=== PATIENT | male | born 1995 | race Two or more races ===

== ENCOUNTER 2018-11-30 19:36 | Inpatient (IN) | payer MEDICAID ==
--- NOTE | 2018-11-30 20:21 | EDPHY ---
H & P Stated Complaint: si, depression - Personal History Current Tetanus Diphtheria and Acellular Pertussis (TDAP): Unsure - Medical/Surgical History Hx Asthma: Yes Other PMH: concussion - Social History Smoking Status: Never smoked Time Seen by Provider: 11/30/18 20:07 HPI/ROS: CHIEF COMPLAINT: Depression, SI HISTORY OF PRESENT ILLNESS: 23-year-old transgender female arrives via private vehicle complaining of increasing depression, suicidal ideation. 2 nights ago she closed garage door ran her car engine for 30 min in the carbon monoxide attempted suicide open the door when she looked in the mirror and saw her face. She has continued thoughts of suicidality with current plan to either drive into a [place] or drive off a [place]. She notes that her symptoms started by enlarged after a head injury which occurred at work in August 2018. REVIEW OF SYSTEMS: 10 systems reviewed and negative with the exception of the elements mentioned in the history of present illness PAST MEDICAL & SURGICAL HISTORY: transgender female SOCIAL HISTORY:Denies acute alcohol or drug use PHYSICAL EXAM (Prior to examination, patient consented to physical exam, hands were washed and my usual and customary physical exam procedures followed) 1) GENERAL: Well-developed, well-nourished, alert and oriented. Appears sad, depressed affect. 2) HEAD: Normocephalic, atraumatic 3) HEENT: Pupils equal, round, reactive to light bilaterally. Sclera anicteric. 4) NECK: Full range of motion, no meningeal signs. 5) LUNGS: Clear auscultation bilaterally, no wheezes, no rhonchi, no retractions. 6) HEART: Regular rate and rhythm, no murmur, no heave, no gallop. 7) ABDOMEN: No guarding, no rebound, no focal tenderness, negative McBurney's, negative Fernandez's, negative Rovsing's, negative peritoneal sign, 8) MUSCULOSKELETAL: Left popliteal fossa abrasion. Multiple subacute pen ye and and scars left forearm. Otherwise, Moving all extremities, no focal areas of tenderness, no obvious trauma. No peripheral edema or discoloration. 9) BACK: No CVA tenderness, no midline vertebral tenderness, no fluctuance, no step-off, no obvious trauma, no visual or palpable abnormality. 10) SKIN: No rash, no petechiae. 11) Psychiatric: Patient is oriented X 3, there is no agitation. DIFFERENTIAL DIAGNOSIS: In no particular order including but not limited to depression, suicidal ideation, homicidal ideation (Jonny Baer) Constitutional: Initial Vital Signs Temperature (C) 36.5 C 11/30/18 19:45 Heart Rate 80 11/30/18 19:45 Respiratory Rate 18 11/30/18 19:45 Blood Pressure 128/75 H 11/30/18 19:45 O2 Sat (%) 96 11/30/18 19:45 O2 Delivery Mode Room Air Allergies/Adverse Reactions: hepatitis B immune globulin Allergy (Verified 11/30/18 19:44) strawberry Allergy (Verified 11/30/18 19:44) Home Medications: Medication Instructions Recorded Estradiol [Estradiol 1 MG (*)] 2 mg PO DAILY 11/30/18 Spironolactone 100 mg PO BID 11/30/18 Medical Decision Making ED Course/Re-evaluation: 820 p.m.: Patient was evaluated by myself. In consultation with Dr. Jessica Hua, secondary supervising physician, patient was placed on M1 hold as I think she presents an imminent danger to herself. Midnight: Care turned over to Dr. Antoine. Mental health anesthesiology crna looking for placement (Jonny Baer) Other Provider: [facility] care assumed from SANDRITA Baer pending mental health evaluation. 01:40 patient has been accepted to [address] Murdock. I have completed the EMTALA. (Rodolfo Antoine) - Data Points Laboratory Results: Laboratory Results 11/30/18 20:20 11/30/18 20:20 11/30/18 11/30/18 11/30/18 21:40 20:20 20:20 WBC 8.59 10^3/uL 10^3/uL (3.80-9.50) RBC 4.98 10^6/uL 10^6/uL (4.40-6.38) Hgb 15.7 g/dL g/dL (13.7-17.5) Hct 45.6 % % (40.0-51.0) MCV 91.6 fL fL (81.5-99.8) MCH 31.5 pg pg (27.9-34.1) MCHC 34.4 g/dL g/dL (32.4-36.7) RDW 11.6 % % (11.5-15.2) Plt Count 267 10^3/uL 10^3/uL (150-400) MPV 10.2 fL fL (8.7-11.7) Neut % (Auto) 70.1 % % (39.3-74.2) Lymph % (Auto) 21.0 % % (15.0-45.0) [place] % (Auto) 6.3 % % (4.5-13.0) Eos % (Auto) 1.6 % % (0.6-7.6) Baso % (Auto) 0.7 % % (0.3-1.7) Nucleat RBC Rel Count 0.0 % % (0.0-0.2) Absolute Neuts (auto) 6.02 10^3/uL 10^3/uL (1.70-6.50) Absolute Lymphs (auto) 1.80 10^3/uL 10^3/uL (1.00-3.00) Absolute Monos (auto) 0.54 10^3/uL 10^3/uL (0.30-0.80) Absolute Eos (auto) 0.14 10^3/uL 10^3/uL (0.03-0.40) Absolute Basos (auto) 0.06 10^3/uL 10^3/uL (0.02-0.10) Absolute Nucleated RBC 0.00 10^3/uL 10^3/uL (0-0.01) Immature Gran % 0.3 % % (0.0-1.1) Immature Gran # 0.03 10^3/uL 10^3/uL (0.00-0.10) Sodium 138 mEq/L mEq/L (135-145) Potassium 4.8 mEq/L mEq/L (3.5-5.2) Chloride 106 mEq/L mEq/L (97-110) Carbon Dioxide 23 mEq/l mEq/l (22-31) Anion Gap 9 mEq/L mEq/L (6-14) BUN 18 mg/dL mg/dL (7-23) Creatinine 0.8 mg/dL mg/dL (0.7-1.3) Estimated GFR > 60 Glucose 104 mg/dL H mg/dL (70-100) Calcium 9.4 mg/dL mg/dL (8.5-10.4) Salicylates < 1.0 mg/dL L mg/dL (2.0-20.0) Urine Opiates Screen NEGATIVE (NEGATIVE) Acetaminophen < 10 mcg/mL L mcg/mL (10-30) Urine Barbiturates NEGATIVE (NEGATIVE) Ur Phencyclidine Scrn NEGATIVE (NEGATIVE) Ur Amphetamine Screen NEGATIVE (NEGATIVE) U Benzodiazepines Scrn NEGATIVE (NEGATIVE) Urine Cocaine Screen NEGATIVE (NEGATIVE) U Marijuana (THC) Screen NEGATIVE (NEGATIVE) Ethyl Alcohol < 10 mg/dL mg/dL (0-10) Medications Given: Discontinued Medications Estradiol (Estradiol) 2 mg PO EDNOW ONE Stop: 11/30/18 21:16 Last Admin: 11/30/18 21:17 Dose: 2 mg Spironolactone (Aldactone) 100 mg PO EDNOW ONE Stop: 11/30/18 21:16 Last Admin: 11/30/18 21:17 Dose: 100 mg Departure - Departure Disposition: [facility] Inpatient Acute Clinical Impression: Suicidal ideation Condition: Fair Referrals: NONE *PRIMARY CARE P,. [Unknown] - As per Instructions
[2018-11-30 20:36] LABS: PLATELET COUNT 267 10^3/uL (150-400)
[2018-11-30] MEDS ORDERED: SPIRONOLACTONE 100 MG TAB PO ONE (21:15)
[2018-11-30] MEDS ORDERED: ESTRADIOL 1 MG TAB PO ONE (21:15)
[2018-12-01] MEDS ORDERED: MELATONIN 3 MG TAB PO PRN (00:10)
[2018-12-01] MEDS ORDERED: LORazepam 0.5 MG TAB PO PRN (00:10)
[2018-12-01] MEDS ORDERED: MAGNESIUM HYDROXIDE 30 ML UDCUP PO PRN (00:10)
[2018-12-01] MEDS ORDERED: MAG HYDROX/AL HYDROX/SIMETH 30 ML UDCUP PO PRN (00:10)
[2018-12-01] MEDS ORDERED: OLANZapine DISINTEGR 5 MG TAB PO PRN (00:10)
[2018-12-01] MEDS ORDERED: ACETAMINOPHEN 325 MG TAB PO PRN (00:10)
[2018-12-01] MEDS ORDERED: NICOTINE POLACRILEX 2 MG GUM B PRN (00:10)
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
--- NOTE | 2018-12-01 00:31 | ASMTTCLDSP ---
TLC Discharge Disposition Disposition: Answers: Admit Discharge Concerns/Recommendations: Notes: In consultation with [facility] ED physician, DR Solo and on-call psychiatrist,Dr Israel, both concurred that Pt does appear to meet 27-65 criteria requiring psychiatric hospitalization as Pt does appear to be an imminent risk of harm to self due to a mental illness condition. Pt was read the Patient Rights and Responsibilities Statement on 11/30/2018 at 23:30, original placed in chart and copy given to pt. Was patient given the Answers: Yes Inpatient Behavioral Health Prohibited Belongings List while in the ED? For inpatient Dr Murdock admission, the following psychiatrist agreed to accept patient for admission to Behavioral Health ([facility]): Type of Hold: Answers: M1/72-hour Hold Hold initiated by: Answers: ED Physician Date Signed: 12/01/2018 12:31 AM Electronically Signed By:Teresa Ocasio
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
[2018-12-01] MEDS: SERTRALINE HCL 50 MG TAB PO SCH (11:01)
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
[2018-12-01] MEDS ORDERED: ESTRADIOL 1 MG TAB PO SCH ×2 (12:52→21:00)
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
[2018-12-01 15:19] LABS: HIV TYPE 1 AND 2 NEGATIVE (NEGATIVE)
--- NOTE | 2018-12-01 16:18 | PDMN ---
Medical Necessity Medical necessity: Pt meets IP criteria per & MICHELLE [id number]; est los >2 mn for eval/tx of major depressive disorder; pt on M1 hold due to being a danger to self; admit for further monitoring, safety, crisis stabilization & med management; per order & H&P 12/01/18
[2018-12-01] MEDS: SPIRONOLACTONE 100 MG TAB PO SCH (20:09)
[2018-12-01] MEDS: ESTRADIOL 1 MG TAB PO SCH (20:11)
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
--- NOTE | 2018-12-02 08:46 | SOAPPROG ---
SOAP Progress Note Assessment/Plan: Assessment: Major Depressive Disorder, Severe, with anxious distress. Improvement noted. ( see subjective/objective note). Patient could benefit from continued inpatient hospitalization for crisis stabilization, safety, and medication evaluation. Consider discharge tomorrow. Plan: 1. Psychotropic medications: After reviewing options, risks, and benefits patient agrees to continue current medications. No medication changes at this time as more time is needed to determine ongoing tolerability and efficacy. Plan is to continue to observe patient for response and side effects from medications, and ongoing monitoring and evaluation. 2. Review with patient informed consent and recommendations for psychotropic medication treatment listed below 3. Labs: no additional at this time 4. Therapy: continue milieu and group therapy 5. Further investigation including gathering information from patients relatives and review of past case records to inform treatment plan. 6. Safety/Wellness plan and follow-up outpatient appointments to be established prior to discharge. Next steps are for patient to meet with healthcare receptionist to plan a safe discharge plan and establish outpatient services for ongoing treatment. 7. Confer with inpatient treatment team regarding treatment plan. 8. Psychosocial stressors addressed through rn field case manager. 9. Legal status: M1 10. Consider discharge on Thursday if patient is in stable condition, safe, and has a safe discharge plan. PSYCHOTROPIC MEDICATION TREATMENT INFORMED CONSENT and RECOMMENDATIONS: Review nature of condition, diagnosis, and prognosis. Review nature and purpose of psychotropic medication treatment. Review type of psychotropic medications being ordered. Review risk and benefits of psychotropic medication treatment. Review probable length of time patient will need to take medications. Review risk and benefits of not undergoing psychotropic medication treatment. Review alternative treatments to psychotropic medications. Review psychotropic medications contraindications, drug-drug interactions, side effects, and importance of reporting any side effects to a psychiatric provider or nurse during inpatient hospitalization, and upon discharge to patients psychiatric outpatient provider, primary care provider, or other health child care provider. Review importance of asking a nurse, psychiatric provider, or primary care provider any questions or problems concerning the psychotropic medications. Verify patient understands the information that has been provided, and understands, accepts, and agrees to psychotropic medications. Review patients safety plan and importance of patient to report to staff while hospitalized if patient is ever a danger to self/others, or unable to care for self, and upon discharge, the importance for patient to contact [facility] or [facility], or go to the nearest emergency room, if patient is ever a danger to self/others, or unable to care for self. Recommend that upon discharge patient establish medication management treatment with a psychiatric provider, establishes routine therapy appointments, and follow-up with primary care provider. Verify patient understands and agrees to these recommendations. 12/02/18 08:45 Subjective: Following up with patient for evaluation of mood and safety. Patient reports, "Feeling better." Patient denies SI, reports feeling safe. Patient expresses the following psychiatric symptoms none. Patient reports taking medications as prescribed. Patient does not report undesirable side effects from the medications, and agrees to continue current medications. Patient describes getting 8 hours of sleep. Objective: Vital Signs Temp Pulse Resp BP Pulse Ox 36.4 C 60 14 124/77 H 95 12/01/18 02:27 12/01/18 02:27 12/01/18 02:27 12/01/18 02:27 12/01/18 02:27 NURSING REPORT: Consulted with nursing for update on patients progress in treatment. Nurses report patient is engaged in treatment, is attending groups, slept 8 hours, expresses the following psychiatric symptoms: mild anxiety, exhibits the following psychiatric symptoms: none, is eating all meals, is agreeable to medications and taking as prescribed with no report of side effects , with no s/s of EPS/akathisia, and denies SI/HI, denies A/V hallucinations, and denies delusions. MSE: The patient presents casually dressed and with good hygiene, and looks stated age. Patient is sitting, posture is upright, and position is relaxed. Patient appears awake, alert, and responds appropriately and reasonably during interview. Patient is engaged, relates well to interviewer, and emotional facial expression is appropriate to situation and changes appropriately with topic. Patient is cooperative, makes comfortable eye contact, and movements are voluntary, deliberate, coordinated, and smooth and even with no inappropriate movements. Patient makes laryngeal sounds effortlessly and shares conversation appropriately; pace of conversation is appropriate, and stream of talking is fluent; articulation is clear and understandable; word choice is effortless and appropriate for education level; completes sentences, occasionally pausing to think; rate and volume are appropriate for interview and setting. Patient reports mood as euthymic. Patients affect is stable with full variable range, congruent with mood, and appropriate to speech and circumstances. Patient has linear and logical thinking, with no loose associations, tangential thought, thought blocking, concrete thinking, or any other signs of formal thought disorder. Patient denies suicidal and homicidal ideation, and denies hallucinations and delusions. Patient appears to be a reliable historian with sound judgement and good insight into current condition. Patient has no apparent dysfunction in recent or remote memory noted , and no evidence of gross cognitive dysfunction noted at any point during the interview. - Time Spent With Patient Time Spent With Patient: 15 minutes, met with patient individually. - Pending Discharge Pending Discharge Within 24 Hours: Yes Pending Discharge Within 48 Hours: No Pending Discharge Date: 12/03/18 Pending Discharge Time: 11:00 ICD10 Worksheet Patient Problems: Problems Problem Status Onset Suicidal ideation Acute
[2018-12-02] MEDS: SERTRALINE HCL 50 MG TAB PO SCH (08:52)
[2018-12-02] MEDS: SPIRONOLACTONE 100 MG TAB PO SCH ×2 (08:52→18:10)
[2018-12-02 10:39] LABS: GC AMPLIFICATION GENPROBE NEGATIVE (NEGATIVE)
[2018-12-02] MEDS: LORazepam 1 MG TAB PO PRN ×2 (11:11→18:11)
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
[2018-12-02] MEDS: ESTRADIOL 1 MG TAB PO SCH (18:10)
--- NOTE | 2018-12-03 08:05 | ASMTCMCOM ---
CM Note CM Note Notes: CC checked in with ct. who reported that she is very tired and that she did not sleep well last night. When asked about her mood ct. said "I don't have a mood". Ct. denied current SI but reported "I'm still concerned that I will do something stupid". Ct. reported that the anxiety medication she has been prescribed was really helpful. She said that if discharging today she would like it prescribed for her as "my anxiety is a trigger for my depression and my depression is a trigger for my SI". Date Signed: 12/03/2018 08:05 AM Electronically Signed By:Raina Alonso
[2018-12-03] MEDS: LORazepam 0.5 MG TAB PO PRN (08:57)
[2018-12-03] MEDS: SPIRONOLACTONE 100 MG TAB PO SCH ×2 (08:58→23:16)
[2018-12-03] MEDS: SERTRALINE HCL 50 MG TAB PO SCH (08:58)
--- NOTE | 2018-12-03 10:43 | SOAPPROG ---
SOAP Progress Note Assessment/Plan: Assessment: Major Depressive Disorder, Severe, with anxious distress. PTSD. Improvement noted. (see subjective/objective note). Patient could benefit from continued inpatient hospitalization for crisis stabilization, safety, and medication evaluation. Requires close monitoring. Consider discharge next week. Plan: 1. Psychotropic medications: After reviewing options, risks, and benefits patient agrees to continue current medications. No medication changes at this time as more time is needed to determine ongoing tolerability and efficacy. Plan is to continue to observe patient for response and side effects from medications, and ongoing monitoring and evaluation. 2. Review with patient informed consent and recommendations for psychotropic medication treatment listed below 3. Labs: no additional at this time 4. Therapy: continue milieu and group therapy 5. Further investigation including gathering information from patients relatives and review of past case records to inform treatment plan. 6. Safety/Wellness plan and follow-up outpatient appointments to be established prior to discharge. Next steps are for patient to meet with respiratory care program director to plan a safe discharge plan and establish outpatient services for ongoing treatment. 7. Confer with inpatient treatment team regarding treatment plan. 8. Psychosocial stressors addressed through caseworker protective services. 9. Legal status: M1; agrees to voluntary 10. Consider discharge next week if patient is in stable condition, safe, and has a safe discharge plan. PSYCHOTROPIC MEDICATION TREATMENT INFORMED CONSENT and RECOMMENDATIONS: Review nature of condition, diagnosis, and prognosis. Review nature and purpose of psychotropic medication treatment. Review type of psychotropic medications being ordered. Review risk and benefits of psychotropic medication treatment. Review probable length of time patient will need to take medications. Review risk and benefits of not undergoing psychotropic medication treatment. Review alternative treatments to psychotropic medications. Review psychotropic medications contraindications, drug-drug interactions, side effects, and importance of reporting any side effects to a psychiatric provider or nurse during inpatient hospitalization, and upon discharge to patients psychiatric outpatient provider, primary care provider, or other health spiritual care coordinator. Review importance of asking a nurse, psychiatric provider, or primary care provider any questions or problems concerning the psychotropic medications. Verify patient understands the information that has been provided, and understands, accepts, and agrees to psychotropic medications. Review patients safety plan and importance of patient to report to staff while hospitalized if patient is ever a danger to self/others, or unable to care for self, and upon discharge, the importance for patient to contact [facility] or [facility], or go to the nearest emergency room, if patient is ever a danger to self/others, or unable to care for self. Recommend that upon discharge patient establish medication management treatment with a psychiatric provider, establishes routine therapy appointments, and follow-up with primary care provider. Verify patient understands and agrees to these recommendations. 12/03/18 10:44 Subjective: Following up with patient for evaluation of mood and safety. Patient reports, "Feeling better, not as anxious. Medications are working okay" Patient expresses the following psychiatric symptoms none. Patient reports taking medications as prescribed. Patient does not report undesirable side effects from the medications, and agrees to continue current medications. Patient describes getting 8 hours of sleep. Patient reports she understands instructions regarding avoiding abrupt discontinuation of hormone therapy as advised by her women's health provider. Objective: Vital Signs Temp Pulse Resp BP Pulse Ox 36.3 C 56 L 16 133/83 H 96 12/03/18 08:14 12/03/18 08:14 12/03/18 08:14 12/03/18 08:14 12/03/18 08:14 NURSING REPORT: Consulted with nursing for update on patients progress in treatment. Nurses report patient is engaged in treatment, is attending groups, slept 8 hours, expresses the following psychiatric symptoms: mild anxiety, exhibits the following psychiatric symptoms: self-harm behaviors (see nursing notes); severe anxiety; is eating all meals, is agreeable to medications and taking as prescribed with no report of side effects, with no s/s of EPS/ akathisia, and denies SI/HI, denies A/V hallucinations, and denies delusions. RN NOTES FROM 12/02/18: "Patient was observed by this RN loosening screws in the pull panel on the east emergency egress door. Patient came to RN station to report she had "accidentally" done this. Dom and this RN walked to the area of the unit where screws were loose. RN stated to patient: "you have tools, please use them." Patient was alerted that she will be in seclusion room if she can't stay safe. Try distraction, try TV, try reading, try games. "none of that will work." " RN NOTES FROM 12/02/18: "At 1100, patient was found sitting on floor in room scratching forearms with point of purple lotion bottle, superficial. Patient appeared anxious, eyes darting, shaking legs. Patient stated "I am tired of this, I keep thinking about killing myself. Hanging." Patient was cooperative and came out of room so that staff could watch patient. Reverse room initiated (Restriction of Rights). Patient accepted 1 mg of ativan. Patient and this appeals writer talked for 45 minutes until patient was calm and laughing. Patient discussed decision to transition to female, risky sexual behaviors, recent trauma events. Patient animated and insightful. Suicide precautions re-initiated and shaving order discontinued." TREATMENT TEAM UPDATE/CARE COORDINATION: Patient not safe to discharge; continue safety precautions. MSE: The patient is a well-nourished transgender female looking stated chronological age. Attire is appropriate dress is hospital garb. Grooming status is appropriate. Ambulation is independent. Gait is normal and coordinated. Posture is normal. Eye contact is appropriate. Motor activity is appropriate with purposeful, organized, coordinated movements; with no involuntary movements. Attitude is cooperative. Patient appears attentive and relates well to this interviewer. Language production is spontaneous. R/R/V normal. Articulation is clear. Patient reports mood as okay with constricted, flat and incongruent affect. Patients thought process is linear and logical. Patient does not report suicidal/homicidal thoughts, ideas, or plans. Patient reports she currently feels safe, and reports no self-injurious ideation. Patient denies auditory, visual hallucinations. Patient denies delusions. Patient does not appear to be attending to internal stimuli. Patients attention and concentration are fair. Patient is oriented to person, place, time. Patients insight is poor. Patients judgment is poor. - Time Spent With Patient Time Spent With Patient: 15 minutes, met with patient individually. - Pending Discharge Pending Discharge Within 24 Hours: No Pending Discharge Within 48 Hours: No ICD10 Worksheet Patient Problems: Problems Problem Status Onset Major depressive disorder, recurrent episode, severe with anxious distress Chronic Post traumatic stress disorder Chronic
[2018-12-03] MEDS: ESTRADIOL 1 MG TAB PO SCH (23:15)
[2018-12-04] MEDS: SERTRALINE HCL 50 MG TAB PO SCH (08:41)
[2018-12-04] MEDS: SPIRONOLACTONE 100 MG TAB PO SCH ×2 (08:41→20:54)
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
--- NOTE | 2018-12-04 13:54 | ASMTCMCOM ---
CM Note CM Note Notes: CC was able to speak to client briefly while she was on the phone. This CC reminded client that he could return after she was "done using the phone, etc." She noted, "oh no I am on the phone with my sister.... I am not suicidal or have any self-harm thoughts." Client did appear pressured while on the phone and speaking to this policy writer. Client noted, "I am feeling great...no depression or anything." Affect is elevated loud and superficial with limited insight.* Date Signed: 12/04/2018 01:53 PM Electronically Signed By:Rayray Andrews
[2018-12-04] MEDS: hydrOXYzine HCL 25 MG TAB PO PRN (14:32)
[2018-12-04] MEDS: ESTRADIOL 1 MG TAB PO SCH (20:54)
[2018-12-05] MEDS: SERTRALINE HCL 50 MG TAB PO SCH (08:18)
[2018-12-05] MEDS: SPIRONOLACTONE 100 MG TAB PO SCH ×2 (08:18→20:33)
--- NOTE | 2018-12-05 11:54 | ASMTBHDC ---
Notes Note: Notes: CC was able to confirm client's discharge apts, etc. Follow up with: Client needs to out-reach DBT (groups, services) at [facility] before discharge. Renan Hogan, MS [employer], [facility] [address] [place] [address] Next Appt: ThursdayDecember 09 (12/09/18) at 2:00pm with Renan. [facility] [address], [place] [address] Appt. TBD Date Signed: 12/05/2018 11:53 AM Electronically Signed By:Rayray Andrews
--- NOTE | 2018-12-05 13:12 | ASMTBHDC ---
Notes Note: Notes: Per Provider, she would like client to complete an assessment for there DBT (IOP) through [facility], prior to D/C tomorrow. CC provider her with all necessary contact info, she had no problem contacting them for an intake before leaving. Additinally, client suggests she has a "ride that can come and pick her up," etc. Client denies any S/I-H/I, depression, anxiety and/or AVH. Date Signed: 12/05/2018 01:11 PM Electronically Signed By:Rayray Andrews
[2018-12-05] MEDS: ESTRADIOL 1 MG TAB PO SCH (20:33)
--- NOTE | 2018-12-05 22:02 | SOAPPROG ---
[facility] Progress Note Assessment/Plan: Assessment: 23yo transgender with MDD with anxious distress, and PTSD admitted with SI and plan, started Zoloft and on behav plan. Has been managing safely on unit since 12/02 with improvement in symptoms and use of coping strategies. 12/05/18 14:31 per staff, slept 8hr. slept in own room as decrease restriction to behav plan. no safety issues. interviewed pt with ARMAMENT REPAIRER student States "being patient is huston to everything". 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 Completed safety plan. Has been more invested in treatment, attending groups, no self harming thoughts or behaviors. Talked of plan to start EMDR with her oupt therapist who recently got EMDR certification. Discussed this and recommended to delay this type of therapy for now. Denied any med s/e, feels vistaril helped but has not needed it today. mse: cooperative, good e/c, shaved facial hair, long black hair, neatly kempt, casually dressed, nml speech rate/vol, no abn invol mvmts. calm, euthymic, no anxiety noted. mood "a lot better", affect full and appropriate to conversation. no psychosis, denied any SI or thoughts to harm others. i/j seem intact. Plan: -Continue Zoloft 50 mg PO daily -Hydroxyzine 25-50 mg PO QID prn anxiety. Used 25mg yesterday with benefit, did not feel it necessary today for any anxiety. -Pt reports never in DBT therapy, would benefit and agreeable for DBT group referrals in community. Also IOP could be helpful if available with her insurance. -Plans to continue with outpatient therapist who specializes in transgender issues. -Recommended NOT start EMDR with her therapist at this time, but preferably start with DBT. Discussed potential risks, brenda w/recent transition, stabilization, newly set goals, new medication etc. Could trigger recurr/incr PTSD. -Pt agrees to explore [facility] to establish with outpt psychiatrist, also DBT groups avail. States mother for some reason didn't like [facility] but pt agrees to check it out and decide for herself. -Slept in room w/o safety, or behavioral, issues last pm. OK to d/c reverse room restriction. Off SP-1. Shaved w/o incident. Anticipate d/c in AM as planned. Objective: Vital Signs Temp Pulse Resp BP Pulse Ox 36.3 C 50 L 15 99/55 L 97 12/05/18 06:00 12/05/18 06:00 12/05/18 06:00 12/05/18 06:00 12/05/18 06:00 - Time Spent With Patient Time Spent With Patient: 35min - Pending Discharge Pending Discharge Within 24 Hours: Yes Pending Discharge Date: 12/05/18 Pending Discharge Time: 11:00 ICD10 Worksheet Patient Problems: Problems Problem Status Onset Major depressive disorder, recurrent episode, severe with anxious distress Chronic Post traumatic stress disorder Chronic
[2018-12-05] MEDS: hydrOXYzine HCL 25 MG TAB PO PRN (22:46)
[2018-12-05] MEDS: LORazepam 0.5 MG TAB PO PRN (23:17)
[2018-12-06 06:30] VITALS: BP 108/57
[2018-12-06] MEDS: SERTRALINE HCL 50 MG TAB PO SCH (09:30)
[2018-12-06] MEDS: SPIRONOLACTONE 100 MG TAB PO SCH (09:31)
--- NOTE | 2018-12-06 11:30 | ASMTBHDC ---
Notes Note: Notes: Pt. reports she is "doing good, can't wait to get out and listen to music". Pt. stated she "had a lot of trouble falling asleep" adding this is normal for her and she was having "racing thoughts". Pt. reports getting enough to eat and attending about 70-80% of the groups. Pt. reports no issues while on the unit. Pt. denied SI, HI, AVH and paranoia. Pt. reports her mother coming between 12pm and 12:30pm for a family meeting and to then take the pt home. Pt. stated this will be her first time discharging from a hospital as an adult. Pt. stated she is able to enroll herself into a DBT IOP group. Pt. stated she would like to shave and put on her make up before her family meeting. Pt. presents as alert, excited to d/c, good eye contact, polite, groomed, and cooperative. Staff report pt. sleeping 7.5 hour and being medication compliant. Pt. follow up appointments as follows: Client needs to out-reach DBT (groups, services) at [facility] before discharge. Renan Hogan, MS VBA PROGRAMMER, [facility] [address] [place] [address] Next Appt: ThursdayDecember 09 (12/09/18) at 2:00pm with Renan. [facility] [address], [place] [address] Next Appt.: Monday December 17, 2018 (12/17/18) @ 9:20am Date Signed: 12/06/2018 11:29 AM Electronically Signed By:Christine Villeda
--- NOTE | 2018-12-06 12:34 | BDS ---
[f rep st] BEHAVIORAL HEALTH DISCHARGE SUMMARY REASON FOR ADMISSION: From the ED note dated 11/30/2018, the patient arrived by private vehicle complaining of increasing depression and suicidal ideation. The patient was admitted involuntarily and on an M1 hold due to being a danger to himself. The patient was admitted for safety, crisis stabilization, and medication management. ADMITTING DIAGNOSES: 1. Major depressive disorder, recurrent episode, severe, with anxious distress. 2. Posttraumatic stress disorder. ADMISSION PHYSICAL EXAM: Patient was seen on 12/01/2018, for history and physical consultation for medical clearance for inpatient psychiatric hospitalization and treatment. The patient was medically cleared for inpatient psychiatric hospitalization and treatment. For further details, please refer to consultation document dated 12/01/2018. ADMISSION LABS: 1. CBC within normal limits. 2. BMP within normal limits except glucose is elevated at 104. 3. Hemoglobin A1c within normal limits at 5.2. 4. Liver function within normal limits. 5. Lipid panel within normal limits except triglyceride was elevated at 284, VLDL cholesterol was elevated at 57. 6. Toxicology screen negative for all substances screened and negative for ethyl alcohol. 7. Syphilis nonreactive. 8. C. Trachomatis RNA negative. 9. HIV 1 and 2 antibody negative. 10. N. gonorrhoeae RNA negative. MAJOR PROCEDURES OR TESTS: None. HOSPITAL COURSE: The most prominent symptoms and behaviors while the patient was here were reports of severe anxiety and the patient did at 1 point during her hospitalization, self-harm. Precautions were put in place for increased monitoring for safety. The patient was safe throughout the remainder of her hospitalization. Zoloft 50 mg p.o. daily was started to target mood symptoms, was tolerated with no report of side effects. Patient has improved considerably with no signs of psychiatric symptoms and no psychiatric symptoms expressed. Patient reports she has improved since admission, states to be in stable condition, feels safe to discharge, and she contracts for safety. Patients response to treatment was good. There were no adverse or unexpected results of treatment. The patient was safe throughout stay, active in treatment , engaged in groups, and was appropriate with staff. Patient met with treatment team prior to discharge to assess readiness to discharge and review discharge plan. The treatment team consensus is the patient in stable condition , has a safe discharge plan, and is ready to discharge today. CONDITION AT DISCHARGE: Patient is in stable condition and is no longer a danger to self or others, and is not gravely disabled due to mental illness. Patient is no longer in need of inpatient level of care, and can be safely and effectively treated within the community. The patients level of risk at time of discharge is low. MSE: The patient is casually dressed and with good hygiene , and looks stated age. Patient is sitting, posture is upright, and position is relaxed. Patient appears awake, alert, and responds appropriately and reasonably during interview. Patient is engaged, relates well to interviewer, and emotional facial expression is appropriate to situation and changes appropriately with topic. Patient is cooperative, makes comfortable eye contact , and movements are voluntary, deliberate, coordinated, and smooth and even with no inappropriate movements. Patient makes laryngeal sounds effortlessly and shares conversation appropriately; pace of conversation is appropriate, and stream of talking is fluent; articulation is clear and understandable; word choice is effortless and appropriate for education level; completes sentences, occasionally pausing to think; rate and volume are appropriate for interview and setting. Patient reports mood as euthymic. Patients affect is stable with full variable range, congruent with mood, and appropriate to speech and circumstances. Patient has linear and logical thinking, with no loose associations, tangential thought, thought blocking, concrete thinking, or any other signs of formal thought disorder. Patient denies suicidal and homicidal ideation, and denies hallucinations and delusions. Patient appears to be a reliable historian with sound judgement and good insight into current condition. Patient has no apparent dysfunction in recent or remote memory noted , and no evidence of gross cognitive dysfunction noted at any point during the interview. DISCHARGE DIAGNOSES: 1. Major depressive disorder, recurrent episode, severe, with anxious distress. 2. Posttraumatic stress disorder. CURRENT MEDICATIONS: After reviewing options, risks and benefits with the patient, the patient agrees to continue: 1. Zoloft 50 mg p.o. daily. 2. Spironolactone 100 mg p.o. twice daily. 3. Estradiol 2 mg p.o. daily. Patient requests a prescription for Zoloft at time of discharge. A prescription for Zoloft for 30 days is provided. The prescription is reviewed with the patient at time of discharge to ensure accuracy and patient understanding. The patient reports she has prescriptions for her other medications listed here and plans to follow up with her outpatient primary care provider and [facility] for [facility]. DISPOSITION: Patient left hospital independently and voluntarily with her mother after meeting with this GROUND INTELLIGENCE OFFICER for a family meeting. FOLLOWUP: community health coordinator reports the appropriate outpatient follow-up services have been established and outpatient appointments have been scheduled. The patient received written instructions with times and dates of outpatient follow-up appointments. The following follow-up recommendations were provided to the patient at discharge: Continue psychotropic medications as prescribed and attend appointments as scheduled. Report any side effects to a psychiatric outpatient provider, a primary care provider, or other health caretaker. Address any questions or problems concerning the psychotropic medications with a psychiatric outpatient provider, a primary care provider, or other health caretaker. Contact [facility] or [facility], or go to the nearest emergency room, if you are ever a danger to yourself/others, or unable to care for yourself. As soon as possible, establish a routine medication management treatment with a psychiatric provider, establish routine therapy appointments, and follow-up with a primary care provider. LEGAL COURSE: The patient was admitted on an M1 hold for involuntary inpatient psychiatric hospitalization and treatment. Patient discharged today independently and voluntarily. ATTITUDE AT TIME OF DISCHARGE: The patients attitude was positive at time of discharge, and patient reports looking forward to discharging today. The patient reports she feels safe to discharge, is no longer a danger to herself or others, is in stable condition, and contracts for safety. Patient states she will continue medications as prescribed, and establish medication management treatment with an outpatient provider after discharge. Patient reports she understands the information that has been provided to her, and she understands, accepts, and agrees to psychotropic medications. Patient describes internal protective factors as the coping skills she has learned while hospitalized here, and she plans to continue to practice these coping skills after discharge. FAMILY MEETING: This GROUND INTELLIGENCE OFFICER met with patient and patient's mother at patient's request at time of discharge to review treatment and discharge plan. Patient's mother reports patient will be returning home with her, agrees with discharge plan, and thanks this GROUND INTELLIGENCE OFFICER and CC for meeting with them. LABS AND RADIOLOGY STUDIES: There were no pending labs or studies at time of discharge. ADVANCED DIRECTIVES: There were no advanced directives on file, and patient was full code during this hospitalization. The following psychotropic medication treatment informed consent and recommendations were provided to the patient at time of discharge. Patient reports she understands, accepts, and agrees to the information that has been provided. PSYCHOTROPIC MEDICATION TREATMENT INFORMED CONSENT and RECOMMENDATIONS: Review nature of condition, diagnosis, and prognosis. Review nature and purpose of psychotropic medication treatment. Review type of psychotropic medications being prescribed. Review risk and benefits of psychotropic medication treatment. Review probable length of time will need to take medications. Review risk and benefits of not undergoing psychotropic medication treatment. Review alternative treatments to psychotropic medications. Review psychotropic medications contraindications, side effects, and importance of reporting any side effects to a psychiatric provider, primary care provider, or other health caretaker. Review importance of her asking a psychiatric provider or primary care provider any questions or problems concerning the psychotropic medications. Review safety plan and the importance to contact [facility] or [facility] , or go to the nearest emergency room, if ever a danger to yourself/others, or unable to care for yourself. Recommend upon discharge to establish routine medication management treatment with a psychiatric provider, establish routine therapy appointments, and follow-up with a primary care provider. Verify patient understands, accepts, and agrees to the information that has been provided. /[id number]/MODL MTDD
== END 2018-12-06 12:40 | disposition home or self-care (01) | DRG 751 ==
LOC: BBEH 12-01 02:13
PROVIDERS: ADMIT Psychiatry & Neurology Behavioral Neurology & Neuropsychiatry; ATTEND Psychiatry & Neurology Behavioral Neurology & Neuropsychiatry
DX: F33.2 Major depressive disorder, recurrent severe without psychotic features (principal); R45.851 Suicidal ideations; F41.9 Anxiety disorder, unspecified; F43.10 Post-traumatic stress disorder, unspecified; F64.0 Transsexualism
CPT/HCPCS: 80305; G0480

== ENCOUNTER 2018-12-14 17:19 | Inpatient (IN) | payer MEDICAID, OTHER ==
--- NOTE | 2018-12-14 17:44 | EDPHY ---
H & P Time Seen by Provider: 12/14/18 17:44 HPI/ROS: Chief complaint. Suicide ideation HPI. Patient is a 23-year-old transgender the person who goes by female orientation. Suicide ideation. Her thoughts are going out in traffic or taking all hurt Zoloft pills. She has been cutting but has not otherwise tried to harm herself. She was seen in our emergency department 2 weeks ago and was hospitalized for a week. She was not much better after the hospitalization and suicide thoughts have continued. No fever chest pain or shortness of breath or abdominal pain. ROS 10 systems were reviewed and negative with the exception of the elements mentioned in the history of present illness Past Medical/Surgical History: Asthma, concussion, gender change Social History: Single, nonsmoker, no alcohol Smoking Status: Never smoked Physical Exam: General Appearance: Alert pleasant well-developed female mild distress vitals are stable Eyes: Pupils equal and round no pallor or injection. ENT, Mouth: Mucous membranes are moist. Respiratory: There are no retractions, lungs are clear to auscultation. Cardiovascular: Regular rate and rhythm. Gastrointestinal: Abdomen is soft and nontender, no masses, bowel sounds normal. Neurological: Awake and alert, sensory and motor exams grossly normal. Skin: Multiple superficial skin lacerations both forearms as well as to chest. They are not infected. None need sutures Musculoskeletal: Neck is supple nontender. Extremities symmetrical, full range of motion. Psychiatric: Patient is oriented X 3, there is no agitation. Constitutional: Initial Vital Signs Temperature (C) 36.8 C 12/14/18 17:21 Heart Rate 66 12/14/18 17:21 Respiratory Rate 16 12/14/18 17:21 Blood Pressure 114/72 12/14/18 17:21 O2 Sat (%) 96 12/14/18 17:21 O2 Delivery Mode Room Air Allergies/Adverse Reactions: hepatitis B immune globulin Allergy (Verified 12/14/18 17:24) strawberry Allergy (Verified 12/14/18 17:24) Home Medications: Medication Instructions Recorded Estradiol [Estradiol 1 MG (*)] 2 mg PO DAILY 11/30/18 Spironolactone 100 mg PO BID 11/30/18 Sertraline HCl [Zoloft 50mg (*)] 50 mg PO DAILY 30 Days #30 tab 12/06/18 Medical Decision Making ED Course/Re-evaluation: Patient's laboratory evaluation is reviewed by me. It is normal. Patient is cleared for mental health evaluation Mental health evaluation they feel the patient is gravely disabled. The place the patient on an . She has been accepted at [address] [place] [address] Differential Diagnosis: I considered suicide homicide ideation, gravely disabled, drug ingestion and withdrawal - Data Points Laboratory Results: Laboratory Results 12/14/18 17:50 12/14/18 17:50 12/14/18 12/14/18 12/14/18 18:30 17:50 17:50 WBC 5.63 10^3/uL 10^3/uL (3.80-9.50) RBC 5.02 10^6/uL 10^6/uL (4.18-5.33) Hgb 15.5 g/dL g/dL (12.6-16.3) Hct 44.6 % % (38.0-47.0) MCV 88.8 fL fL (81.5-99.8) MCH 30.9 pg pg (27.9-34.1) MCHC 34.8 g/dL g/dL (32.4-36.7) RDW 11.9 % % (11.5-15.2) Plt Count 212 10^3/uL 10^3/uL (150-400) MPV 9.8 fL fL (8.7-11.7) Neut % (Auto) 62.2 % % (39.3-74.2) Lymph % (Auto) 28.4 % % (15.0-45.0) [place] % (Auto) 6.0 % % (4.5-13.0) Eos % (Auto) 2.5 % % (0.6-7.6) Baso % (Auto) 0.7 % % (0.3-1.7) Nucleat RBC Rel Count 0.0 % % (0.0-0.2) Absolute Neuts (auto) 3.50 10^3/uL 10^3/uL (1.70-6.50) Absolute Lymphs (auto) 1.60 10^3/uL 10^3/uL (1.00-3.00) Absolute Monos (auto) 0.34 10^3/uL 10^3/uL (0.30-0.80) Absolute Eos (auto) 0.14 10^3/uL 10^3/uL (0.03-0.40) Absolute Basos (auto) 0.04 10^3/uL 10^3/uL (0.02-0.10) Absolute Nucleated RBC 0.00 10^3/uL 10^3/uL (0-0.01) Immature Gran % 0.2 % % (0.0-1.1) Immature Gran # 0.01 10^3/uL 10^3/uL (0.00-0.10) Sodium 139 mEq/L mEq/L (135-145) Potassium 4.4 mEq/L mEq/L (3.5-5.2) Chloride 103 mEq/L mEq/L (97-110) Carbon Dioxide 26 mEq/l mEq/l (22-31) Anion Gap 10 mEq/L mEq/L (6-14) BUN 10 mg/dL mg/dL (7-23) Creatinine 1.0 mg/dL mg/dL (0.6-1.0) Estimated GFR > 60 Glucose 93 mg/dL mg/dL (70-100) Calcium 9.4 mg/dL mg/dL (8.5-10.4) Urine Opiates Screen NEGATIVE (NEGATIVE) Acetaminophen < 10 mcg/mL L mcg/mL (10-30) Urine Barbiturates NEGATIVE (NEGATIVE) Ur Phencyclidine Scrn NEGATIVE (NEGATIVE) Ur Amphetamine Screen NEGATIVE (NEGATIVE) U Benzodiazepines Scrn NEGATIVE (NEGATIVE) Urine Cocaine Screen NEGATIVE (NEGATIVE) U Marijuana (THC) Screen NON-NEGATIVE H (NEGATIVE) Ethyl Alcohol < 10 mg/dL mg/dL (0-10) Departure - Departure Disposition: [facility] IP Clinical Impression: Major depressive disorder, recurrent episode, severe with anxious distress Condition: Fair Referrals: NONE *PRIMARY CARE P,. [Primary Care Provider] - As per Instructions
[2018-12-14 18:00] LABS: PLATELET COUNT 212 10^3/uL (150-400)
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
--- NOTE | 2018-12-14 21:16 | ASMTTCLDSP ---
[facility] Discharge Disposition Disposition: Answers: Admit Discharge Concerns/Recommendations: Notes: In consultation with [facility] ED physician,Dr Elizabeth on-call psychiatrist,Dr Murdock , both concurred that Pt does appear to meet 27-65 criteria requiring psychiatric hospitalization as Pt does appear to be an imminent risk of harm to self/ due to grave disability due to a mental illness condition. Pt was read the Patient Rights and Responsibilities Statement on 12/14/2018 at 20:50, original placed in chart and copy given to pt. Pt signed the Patient Rights. Was patient given the Answers: Yes Inpatient Behavioral Health Prohibited Belongings List while in the ED? For inpatient Dr Murdock admission, the following psychiatrist agreed to accept patient for admission to Behavioral Health ([facility]): Type of Hold: Answers: M1/72-hour Hold Hold initiated by: Answers: Other Notes: [facility] clinician Date Signed: 12/14/2018 09:15 PM Electronically Signed By:Teresa Ocasio
[2018-12-14] MEDS ORDERED: LORazepam 1 MG TAB PO ONE (23:48)
[2018-12-15] MEDS ORDERED: MAG HYDROX/AL HYDROX/SIMETH 30 ML UDCUP PO PRN (00:20)
[2018-12-15] MEDS ORDERED: NICOTINE POLACRILEX 2 MG GUM B PRN (00:20)
[2018-12-15] MEDS ORDERED: MAGNESIUM HYDROXIDE 30 ML UDCUP PO PRN (00:20)
[2018-12-15] MEDS ORDERED: ACETAMINOPHEN 325 MG TAB PO PRN (00:20)
[2018-12-15] MEDS ORDERED: MELATONIN 3 MG TAB PO PRN (00:20)
[2018-12-15] MEDS: OLANZapine DISINTEGR 5 MG TAB PO PRN (00:52)
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
--- NOTE | 2018-12-15 10:59 | PDMN ---
Medical Necessity Medical necessity: Pt meets IP criteria per & MICHELLE [id number]; est los >2 mn for eval/tx of major depressive disorder; pt on M1 hold due to being a danger to self; admit for further monitoring, safety, crisis stabilization & med management; per order & H&P 12/14/18
--- NOTE | 2018-12-15 13:27 | ASMTCMCOM ---
CM Note CM Note Notes: CC tried meeting with ct. to develop MTP several times throughout the day. Ct. was sound asleep and refused to get up. MTP to be completed tomorow. Date Signed: 12/15/2018 01:26 PM Electronically Signed By:Raina Alonso
[2018-12-15] MEDS: SPIRONOLACTONE 100 MG TAB PO SCH (20:48)
[2018-12-15] MEDS: ESTRADIOL 1 MG TAB PO SCH (20:49)
[2018-12-16] MEDS: LORazepam 0.5 MG TAB PO PRN ×2 (06:18→23:21)
--- NOTE | 2018-12-16 06:37 | SOAPPROG ---
SOAP Progress Note Assessment/Plan: Assessment: Major Depressive Disorder, Severe, with anxious distress. PTSD. Alcohol Use Disorder, Severe. Cannabis Use Disorder, Severe. Cannabis-induced anxiety. No improvement noted. (see subjective/objective note). Withdrawn from social interactions. Continues to report severe anxiety; patient has recent history of self-harm and SI with plans. Not safe to discharge at this time. Patient could benefit from continued inpatient hospitalization for crisis stabilization , safety, and medication evaluation. Plan: 1. Psychotropic medications: After reviewing options, risks, and benefits patient agrees to continue current medications. No medication changes at this time as more time is needed to determine ongoing tolerability and efficacy. Plan is to continue to observe patient for response and side effects from medications, and ongoing monitoring and evaluation. 2. Review with patient informed consent and recommendations for psychotropic medication treatment listed below 3. Labs: no additional at this time 4. Therapy: continue milieu and group therapy 5. Further investigation including gathering information from patients relatives and review of past case records to inform treatment plan. 6. Safety/Wellness plan and follow-up outpatient appointments to be established prior to discharge. Next steps are for patient to meet with daycare manager to plan a safe discharge plan and establish outpatient services for ongoing treatment. 7. Confer with inpatient treatment team regarding treatment plan. 8. Psychosocial stressors addressed through case planner. 9. Legal status: M1; agrees to voluntary 10. Consider discharge next week if patient is in stable condition, safe, and has a safe discharge plan. PSYCHOTROPIC MEDICATION TREATMENT INFORMED CONSENT and RECOMMENDATIONS: Review nature of condition, diagnosis, and prognosis. Review nature and purpose of psychotropic medication treatment. Review type of psychotropic medications being ordered. Review risk and benefits of psychotropic medication treatment. Review probable length of time patient will need to take medications. Review risk and benefits of not undergoing psychotropic medication treatment. Review alternative treatments to psychotropic medications. Review psychotropic medications contraindications, drug-drug interactions, side effects, and importance of reporting any side effects to a psychiatric provider or nurse during inpatient hospitalization, and upon discharge to patients psychiatric outpatient provider, primary care provider, or other health career and guidance counselor. Review importance of asking a nurse, psychiatric provider, or primary care provider any questions or problems concerning the psychotropic medications. Verify patient understands the information that has been provided, and understands, accepts, and agrees to psychotropic medications. Review patients safety plan and importance of patient to report to staff while hospitalized if patient is ever a danger to self/others, or unable to care for self, and upon discharge, the importance for patient to contact [facility] or [facility], or go to the nearest emergency room, if patient is ever a danger to self/others, or unable to care for self. Recommend that upon discharge patient establish medication management treatment with a psychiatric provider, establishes routine therapy appointments, and follow-up with primary care provider. Verify patient understands and agrees to these recommendations. 12/16/18 06:34 Subjective: Following up with patient for evaluation of mood and safety. Patient reports, "Not feeling good, really anxious." Patient expresses the following psychiatric symptoms severe anxiety. Patient reports taking medications as prescribed. Patient does not report undesirable side effects from the medications, and agrees to continue current medications. Patient describes getting 6 hours of sleep. Objective: Vital Signs Temp Pulse Resp BP Pulse Ox 36.3 C 47 L 14 119/62 98 12/16/18 06:00 12/16/18 06:00 12/16/18 06:00 12/16/18 06:00 12/16/18 06:00 NURSING REPORT: Consulted with nursing for update on patients progress in treatment. Nurses report patient is not engaged in treatment, is not attending groups, slept 8 hours, expresses the following psychiatric symptoms: severe anxiety, exhibits the following psychiatric symptoms: severe anxiety, withdrawn from social interactions; is eating all meals, is agreeable to medications and taking as prescribed with no report of side effects, with no s/s of EPS/ akathisia, and denies SI/HI, denies A/V hallucinations, and denies delusions. MSE: The patient is a well-nourished transgender female looking stated chronological age. Attire is appropriate dress is casual. Grooming status is appropriate. Ambulation is independent. Gait is normal and coordinated. Posture is normal. Eye contact is appropriate. Motor activity is appropriate with purposeful, organized, coordinated movements; with no involuntary movements. Attitude is cooperative. Patient appears attentive and relates well to this interviewer. Language production is spontaneous. R/R/V normal. Articulation is clear. Patient reports mood as anxious with congruent affect. Patients thought process is linear and logical. Patient does not report suicidal/homicidal thoughts, ideas, or plans. Patient reports she currently feels safe, and reports no self-injurious ideation. Patient denies auditory, visual hallucinations. Patient denies delusions. Patient does not appear to be attending to internal stimuli. Patients attention and concentration are fair. Patient is oriented to person, place, time. Patients insight is poor. Patients judgment is poor. - Time Spent With Patient Time Spent With Patient: 15 minutes, met with patient individually. - Pending Discharge Pending Discharge Within 24 Hours: No Pending Discharge Within 48 Hours: No ICD10 Worksheet Patient Problems: Problems Problem Status Onset Post traumatic stress disorder Chronic
--- NOTE | 2018-12-16 07:02 | ASMTBHMTP ---
Master Treatment Plan Master Treatment Plan Answers: Depressed Mood with for: Suicidal Ideation Date: 12/16/2018 Diagnosis on Admission: Major Depressive Disorder, recurrent, severe 296.33 (F33.2) Expected length of stay: 3-5 Reason for admission: Notes: Pt is a 23 y/o transgender female, self-presenting, arriving via private vehicle. Per ED physician's report, she is experiencing SI and is thinking of going "out into traffic or taking all of her Zoloft". She reports cutting herself, but has not otherwise tried to harm herself. She was seen in our ED last on 12/01/2018 and was hospitalized on [facility]'s behavioral unit from 12/01 -12/06. Pt reports that "I don't think I was ready to leave the hospital last time, but I felt cooped up and wanted fresh air". She states that she has spent the last 2 weeks drinking and smoking marijuana heavily. Her arms and chest have multiple scratches on them from self-harming, which she states she has done over the last couple days. She has also carved the word "HATE" onto a forearm and above a breast. This is the first time pt has carved a word into her skin. She and her mother concur that she stays out to very late at night , sometimes not returning home until the natural resource specialist hours. Pt states that her life is in God's hands, "If he wants me to live I will, if not I won't". This clinician placed pt on an M1 hold for grave disability due to the above. Per M1, "Since discharged from [facility] unit 12/06 pt has been cutting and carving skin. drinking and uding pot heavily, staying out until very late at night, "I don't care if I ". Patient's stated presenting problems: Notes: "My mom thinks I'm a danger to myself. I don't trust myself. I don't remember doing it to myself (the cutting)". Patient's goals for treatment: Notes: I cannot think straight. I feel like I'm losing my mind". Patient's strengths: Notes: Unable to answer Identify supports outside of hospital: Notes: "MOC, my friends". Discharge criteria: Notes: SI will resolve and ct. will have a plan to safely manage recurrent SI. Initial disposition plan/considerations: Notes: Ct. will participate in unit activities and work on scheduling follow up appointments in the community Master Treatment Plan Required Signatures Psychiatrist signature: Answers: Psychiatrist: RN on-shift signature: Answers: RN: Patient signature: Answers: Patient: Date Signed: 12/16/2018 07:01 AM Electronically Signed By:Raina Alonso
--- NOTE | 2018-12-16 07:09 | ASMTCMCOM ---
CM Note CM Note Notes: CC met with ct. to develop MTP. Ct. was twitching and trembling while talking to CC and reported that she is experiencing a panic attack. Ct. was speaking with CC face down with no eye contact. She has lots of superficial cuts on her arms and chest and she carved the word "hate" into her forearm. Ct. reported that she doesn't remember cutting herself. Ct. reported that she had missed a scheduled appointment with a new prescriber. She wasn't able to remember the provider's name but said that her mom would know. [facility] phone number is [phone]. Date Signed: 12/16/2018 07:08 AM Electronically Signed By:Raina Alonso
[2018-12-16] MEDS: SPIRONOLACTONE 100 MG TAB PO SCH ×2 (07:49→20:35)
[2018-12-16] MEDS: SERTRALINE HCL 50 MG TAB PO SCH (08:01)
--- NOTE | 2018-12-16 08:29 | ASMTBHDC ---
Notes Note: Notes: CC spoke with [facility] who reported that ct. is going to miss her appointment with [facility] which was scheduled for today. MOC reported that ct.'s therpist recommends intensive outpatient treatment and DBT. Per MOC it is not clear whether ct. is going to go back to current therapist. She is going to check [facility] day treatment program and several therapists in the community. Per MOC they are not interested in [facility] and/or therapists through Medicaid. [facility] agreed to update CC about follow up appointments. Date Signed: 12/16/2018 08:28 AM Electronically Signed By:Raina Alonso
[2018-12-16] MEDS: ESTRADIOL 1 MG TAB PO SCH (20:35)
[2018-12-16] MEDS: OLANZapine DISINTEGR 5 MG TAB PO PRN (23:15)
--- NOTE | 2018-12-17 07:49 | SOAPPROG ---
SOAP Progress Note Assessment/Plan: Assessment: Major Depressive Disorder, Severe, with anxious distress. PTSD. Alcohol Use Disorder, Severe. Cannabis Use Disorder, Severe. Cannabis-induced anxiety. No improvement noted. (see subjective/objective note). Withdrawn from social interactions. Patient requires close monitoring, suicide precautions. Patient recently hospitalized and decompensated rapidly after discharge, readmitted due to increased suicidal ideation and increase self-injurious behavior. Patient has numerous cuts on both forearms from recent self-harm prior to this admission. Patient is currently a danger to herself, and requires continued inpatient hospitalization for crisis stabilization, safety, medication evaluation, and establishment of safe discharge plan. Plan: 1. Psychotropic medications: After reviewing options, risks, and benefits patient agrees to continue current medications. No medication changes at this time as more time is needed to determine ongoing tolerability and efficacy. Plan is to continue to observe patient for response and side effects from medications, and ongoing monitoring and evaluation. 2. Review with patient informed consent and recommendations for psychotropic medication treatment listed below 3. Labs: no additional at this time 4. Therapy: continue milieu and group therapy 5. Further investigation including gathering information from patients relatives and review of past case records to inform treatment plan. 6. Safety/Wellness plan and follow-up outpatient appointments to be established prior to discharge. Next steps are for patient to meet with intensive care specialist to plan a safe discharge plan and establish outpatient services for ongoing treatment. 7. Confer with inpatient treatment team regarding treatment plan. 8. Psychosocial stressors addressed through corrections caseworker. 9. Legal status: agrees to voluntary hospitalization 10. Consider discharge next week if patient is in stable condition, safe, and has a safe discharge plan. PSYCHOTROPIC MEDICATION TREATMENT INFORMED CONSENT and RECOMMENDATIONS: Review nature of condition, diagnosis, and prognosis. Review nature and purpose of psychotropic medication treatment. Review type of psychotropic medications being ordered. Review risk and benefits of psychotropic medication treatment. Review probable length of time patient will need to take medications. Review risk and benefits of not undergoing psychotropic medication treatment. Review alternative treatments to psychotropic medications. Review psychotropic medications contraindications, drug-drug interactions, side effects, and importance of reporting any side effects to a psychiatric provider or nurse during inpatient hospitalization, and upon discharge to patients psychiatric outpatient provider, primary care provider, or other health director medicare sales. Review importance of asking a nurse, psychiatric provider, or primary care provider any questions or problems concerning the psychotropic medications. Verify patient understands the information that has been provided, and understands, accepts, and agrees to psychotropic medications. Review patients safety plan and importance of patient to report to staff while hospitalized if patient is ever a danger to self/others, or unable to care for self, and upon discharge, the importance for patient to contact [facility] or [facility], or go to the nearest emergency room, if patient is ever a danger to self/others, or unable to care for self. Recommend that upon discharge patient establish medication management treatment with a psychiatric provider, establishes routine therapy appointments, and follow-up with primary care provider. Verify patient understands and agrees to these recommendations. 12/17/18 07:50 Subjective: Following up with patient for evaluation of mood and safety. Patient reports, "Still not feeling good, don't feel safe to leave here. Still having thoughts of wanting to harm myself. Don't want to continue to live like this." Patient expresses the following psychiatric symptoms severe anxiety. Patient reports taking medications as prescribed. Patient does not report undesirable side effects from the medications, and agrees to continue current medications. Objective: Vital Signs Temp Pulse Resp BP Pulse Ox 36.3 C 47 L 14 119/62 98 12/16/18 06:00 12/16/18 06:00 12/16/18 06:00 12/16/18 06:00 12/16/18 06:00 MSE: The patient is a well-nourished transgender female looking stated chronological age. Attire is appropriate dress is casual. Grooming status is appropriate. Ambulation is independent. Gait is normal and coordinated. Posture is normal. Eye contact is appropriate. Motor activity is appropriate with purposeful, organized, coordinated movements; with no involuntary movements. Attitude is cooperative. Patient appears attentive and relates well to this interviewer. Language production is spontaneous. R/R/V normal. Articulation is clear. Patient reports mood as anxious with congruent affect. Patients thought process is linear and logical. No s/s of formal thought disorder noted. Patient reports suicidal thoughts. Patient denies homicidal thoughts. Patient reports she currently feels safe on the unit, and reports no current self-injurious ideation. Patient describes not feeling safe to discharge. Patient denies auditory, visual hallucinations. Patient denies delusions. Patient does not appear to be attending to internal stimuli. Patients attention and concentration are fair. Patient is oriented to person, place, time. Patients insight is poor. Patients judgment is poor. - Time Spent With Patient Time Spent With Patient: 15 minutes, met with patient individually. - Pending Discharge Pending Discharge Within 24 Hours: No Pending Discharge Within 48 Hours: No ICD10 Worksheet Patient Problems: Problems Problem Status Onset Alcohol use disorder, severe, dependence Acute Cannabis use disorder, severe, dependence Acute Cannabis-induced anxiety disorder Acute Major depressive disorder, severe Chronic Post traumatic stress disorder Chronic
[2018-12-17] MEDS: SERTRALINE HCL 50 MG TAB PO SCH (08:26)
[2018-12-17] MEDS: SPIRONOLACTONE 100 MG TAB PO SCH ×3 (08:27→22:30)
--- NOTE | 2018-12-17 12:19 | ASMTCMCOM ---
CM Note CM Note Notes: The patient requested to sign in voluntary; following previous premature discharge. The patient reported having a "terrible dream" involving her ex-girlfriend, who successfully suicided). The patient did not elaborate on the content. She emphasized "not feeling safe" nor "trusting myself outside." The patient has demonstrated unstable affect; she presents as labile "giggling" or "tearful." CC has contacted [facility] for additional follow up support. Date Signed: 12/17/2018 12:18 PM Electronically Signed By:Rina Barry
[2018-12-17] MEDS: ESTRADIOL 1 MG TAB PO SCH ×2 (20:57→22:30)
[2018-12-17] MEDS: LORazepam 0.5 MG TAB PO PRN (22:30)
[2018-12-18] MEDS: SERTRALINE HCL 50 MG TAB PO SCH (09:01)
[2018-12-18] MEDS: SPIRONOLACTONE 100 MG TAB PO SCH ×2 (09:01→20:54)
--- NOTE | 2018-12-18 15:52 | ASMTCMCOM ---
CM Note CM Note Notes: Pt. reports feeling "okay...I guess". Pt. stated she slept " a lot". Pt. reports she is "not very hungry", adding she is "trying to stay active". Pt. reports no issues with her current medications, adding she feels "really depressed". Pt. stated she is feeling depressed because she "wrote letter to ex", adding her ex partner committed suicide this past summer. Pt. reports attending one group, adding she "feel like being left alone". Pt. shared about her is being creative in her room and journaling. Pt. stated "guess not really" when ask about SI. Pt. stated she is thinking of hurting herself, but not while in the hospital, as she doesn't want to lose her privileges Pt. stated she thinks about what she will do when she discharges, adding she is thinking about "jumping into traffic, or off an over pass". Pt. stated she has also thought [place] and [place]" off a alphonso. Pt. reports hearing "Omar", adding "he's the source of my problems". Pt. stated she is "pretty sure it's him who cuts me" adding she doesn't recall cutting herself. Pt. stated after discharging last time, she was "out'ed on [employer], to 15,000 people". Pt. stated she felt hurt by this. Pt. stated after this she was "attached on [employer]" stating people told her to kill herself. Pt. reports being used to people telling her she should kill herself. Pt. stated she wishes she has been successful with her last suicide attempt. Pt. reports having pain in the back of her head, where she got a concussion on 09/07/18 and blacked out. Pt. expressed concern about her concussion to MD. CC spoke with pt. about her substance use. Pt. reports having "several joints at home" adding she is looking forward to smoking them. Pt. presents as alert, calm, talkative, lacking insight into substance use, and cooperative. Staff report pt. sleeping3 hours last night, due to being taken to the ER for chest pain. Staff report pt. being medication compliant. Pt. currently has appointments with [facility] on 12/31/18 and [facility] on 12/27/18. Date Signed: 12/18/2018 03:52 PM Electronically Signed By:Christine Villeda
--- NOTE | 2018-12-18 16:58 | SOAPPROG ---
SOAP Progress Note Assessment/Plan: Assessment: Per Toribio Donohue's most recent note: Major Depressive Disorder, Severe, with anxious distress. PTSD. Alcohol Use Disorder, Severe. Cannabis Use Disorder, Severe. Cannabis-induced anxiety. No improvement noted. (see subjective/objective note). Withdrawn from social interactions. Patient requires close monitoring, suicide precautions. Patient recently hospitalized and decompensated rapidly after discharge, readmitted due to increased suicidal ideation and increase self-injurious behavior. Patient has numerous cuts on both forearms from recent self-harm prior to this admission. Patient is currently a danger to herself, and requires continued inpatient hospitalization for crisis stabilization, safety, medication evaluation, and establishment of safe discharge plan. Plan: 1. Psychotropic medications: After reviewing options, risks, and benefits patient agrees to continue current medications. No medication changes at this time as more time is needed to determine ongoing tolerability and efficacy. Plan is to continue to observe patient for response and side effects from medications, and ongoing monitoring and evaluation. WEEKEND PLAN: 12/18/18 16:53 1. Patient c/o severe CP last night and had elevated BP, so she was sent to ED for cardiac w/u which was negative. ED physician concluded patient was having a panic attack. MD discussed this with patient today, and she admits that in the past when she's been anxious, she has experienced chest pain, ORONA, rapid breathing or trouble catching her breath. She reports feeling "less anxious" today. 2. Patient denies SI today. 3. No change to medications. 4. Voluntary Subjective: MD and CC both interviewed patient together in her room. Patient was sitting up on her bed wearing street clothes. Patient reported she has ORONA today, but no chest pain. She says she hit her head on metal sink in August, and passed out. She went to ED and was dx with concussion. She was supposed to f/u with neurologist, but patient says "I never did." Patient was also supposed to f /u with psychiatrist at [facility] after her last discharge from , but admits she never did. Instead, patient admits to using "a lot of drugs" and "getting high" all the time. Patient said she had panic attack yesterday, but doesn't know what happened to trigger it. Today, she reports a lot less anxiety and no panic. She denies CP. She denies any SI/HI today. Objective: Vital Signs Temp Pulse Resp BP Pulse Ox 36.3 C 157 H 14 135/86 H 98 12/16/18 06:00 12/17/18 20:23 12/16/18 06:00 12/17/18 20:23 12/16/18 06:00 MSE: Affect: Euthymic Mood: "Less anxious" "Better" TP: Linear, goal-directed TC: Denies SI/HI, no paranoia Insight/Judgment: Poor a/e/b noncompliance with treatment and "a lot of drug" use, but improved since admission - Time Spent With Patient Time Spent With Patient: 20" - Pending Discharge Pending Discharge Within 24 Hours: Yes Pending Discharge Within 48 Hours: No Pending Discharge Date: 12/19/18 (Patient might discharge on Thursday ) Pending Discharge Time: 11:00 ICD10 Worksheet Patient Problems: Problems Problem Status Onset Alcohol use disorder, severe, dependence Acute Cannabis use disorder, severe, dependence Acute Cannabis-induced anxiety disorder Acute Major depressive disorder, severe Chronic Post traumatic stress disorder Chronic
[2018-12-18] MEDS: LORazepam 0.5 MG TAB PO PRN (17:24)
[2018-12-18] MEDS: ESTRADIOL 1 MG TAB PO SCH (20:55)
[2018-12-18] MEDS: OLANZapine DISINTEGR 5 MG TAB PO PRN (23:58)
[2018-12-19] MEDS: LORazepam 0.5 MG TAB PO PRN ×2 (01:01→18:22)
[2018-12-19] MEDS: SERTRALINE HCL 50 MG TAB PO SCH (09:01)
[2018-12-19] MEDS: SPIRONOLACTONE 100 MG TAB PO SCH ×2 (09:03→21:08)
--- NOTE | 2018-12-19 15:11 | ASMTBHFAM ---
Notes Note: Notes: The patient is observed in her room; excessively sleeping and isolative. The patient maintains interest in writer editor care. According to the Nadege, the patient is afraid she will be prematurely discharged. She asked about attending treatment team or scheduling a family meeting; stating "When she discharged the last time we met with the provider and it was prefunctory." Nadege confirmed times for the patient's follow up appointments and explained that she has been researching PHP and IOP programs who accept medicaid. She is concerned how the patient will occupy herself outside of treatment times. Nadege spoke with the patient directly who is reported increased SI. She denied intent while on the unit, citing a previous room reversal as motivation to remain safe. Nadege became tearful while speaking to this newswriter about the patient's current presentation. She fears the patient is "worsening." She recommended an increase in Zoloft. Date Signed: 12/19/2018 03:10 PM Electronically Signed By:Rina Barry
--- NOTE | 2018-12-19 16:42 | SOAPPROG ---
SOAP Progress Note Assessment/Plan: Assessment: Per Toribio Donohue's most recent note: Major Depressive Disorder, Severe, with anxious distress. PTSD. Alcohol Use Disorder, Severe. Cannabis Use Disorder, Severe. Cannabis-induced anxiety. No improvement noted. (see subjective/objective note). Withdrawn from social interactions. Patient requires close monitoring, suicide precautions. Patient recently hospitalized and decompensated rapidly after discharge, readmitted due to increased suicidal ideation and increase self-injurious behavior. Patient has numerous cuts on both forearms from recent self-harm prior to this admission. Patient is currently a danger to herself, and requires continued inpatient hospitalization for crisis stabilization, safety, medication evaluation, and establishment of safe discharge plan. Plan: 1. Psychotropic medications: After reviewing options, risks, and benefits patient agrees to continue current medications. No medication changes at this time as more time is needed to determine ongoing tolerability and efficacy. Plan is to continue to observe patient for response and side effects from medications, and ongoing monitoring and evaluation. WEEKEND PLAN: 12/18/18 16:53 1. Patient c/o severe CP last night and had elevated BP, so she was sent to ED for cardiac w/u which was negative. ED physician concluded patient was having a panic attack. MD discussed this with patient today, and she admits that in the past when she's been anxious, she has experienced chest pain, ORONA, rapid breathing or trouble catching her breath. She reports feeling "less anxious" today. 2. Patient denies SI today. 3. No change to medications. 4. Voluntary 12/19/18 16:39 1. Patient stayed in her room most of the day. 2. Patient continues to report passive SI, states she will be safe in hospital, but doesn't believe she can keep herself safe if she has no place to live when she leaves hospital. 3. Patient says she wants to go to residential program when she leaves hospital. 4. Patient reports she has been less depressed and anxious for past 48 hrs. In general, she feels "better" when she is in hospital, but has hard time coping outside hospital. 5. Voluntary Subjective: Patient spent most of the day in her room. Certain peers make her more anxious and she prefers to avoid interacting with them. She denies any thoughts, plan or intent to hurt herself in hospital. However, when she thinks about leaving the hospital and having no where to live, she reports feeling more anxious, sad , helpless and hopeless. Objective: Vital Signs Temp Pulse Resp BP Pulse Ox 36.6 C 64 16 118/71 94 12/19/18 06:00 12/19/18 06:00 12/19/18 06:00 12/19/18 06:00 12/19/18 06:00 MSE: Affect: Euthymic Mood: "Good" TP: Linear, goal-directed TC: Denies any SI/HI, no delusions Insight/Judgment: Poor - Time Spent With Patient Time Spent With Patient: 15" - Pending Discharge Pending Discharge Within 24 Hours: No Pending Discharge Within 48 Hours: No ICD10 Worksheet Patient Problems: Problems Problem Status Onset Alcohol use disorder, severe, dependence Acute Cannabis use disorder, severe, dependence Acute Cannabis-induced anxiety disorder Acute Major depressive disorder, severe Chronic Post traumatic stress disorder Chronic
[2018-12-19] MEDS: ESTRADIOL 1 MG TAB PO SCH (21:08)
[2018-12-19] MEDS: OLANZapine DISINTEGR 5 MG TAB PO PRN (21:54)
[2018-12-20 06:28] VITALS: BP 116/64
--- NOTE | 2018-12-20 06:49 | SOAPPROG ---
SOAP Progress Note Assessment/Plan: Assessment: Major Depressive Disorder, Severe, with anxious distress. PTSD. Alcohol Use Disorder, Severe. Cannabis Use Disorder, Severe. Cannabis-induced anxiety. No improvement noted. (see subjective/objective note). Reports SI with plans. Withdrawn from social interactions. Severe mood instability, patient had panic attack on Thursday and had to be taken to ER. Patient requires close monitoring, suicide precautions. Patient recently hospitalized and decompensated rapidly after discharge, readmitted due to increased suicidal ideation and increase self -injurious behavior. Patient has numerous cuts on both forearms from recent self-harm prior to this admission. Patient could benefit from continued inpatient hospitalization for crisis stabilization, safety, medication evaluation, and establishment of safe discharge plan. Plan: 1. Psychotropic medications: After reviewing options, risks, and benefits patient agrees to continue current medications. No medication changes at this time as more time is needed to determine ongoing tolerability and efficacy. Plan is to continue to observe patient for response and side effects from medications, and ongoing monitoring and evaluation. 2. Review with patient informed consent and recommendations for psychotropic medication treatment listed below 3. Labs: no additional at this time 4. Therapy: continue milieu and group therapy 5. Further investigation including gathering information from patients relatives and review of past case records to inform treatment plan. 6. Safety/Wellness plan and follow-up outpatient appointments to be established prior to discharge. Next steps are for patient to meet with home care physical therapist to plan a safe discharge plan and establish outpatient services for ongoing treatment. 7. Confer with inpatient treatment team regarding treatment plan. 8. Psychosocial stressors addressed through clinical case manager. 9. Legal status: agrees to voluntary hospitalization 10. Consider discharge next week if patient is in stable condition, safe, and has a safe discharge plan. 11. Substance abuse intervention: alcohol and THC PSYCHOTROPIC MEDICATION TREATMENT INFORMED CONSENT and RECOMMENDATIONS: Review nature of condition, diagnosis, and prognosis. Review nature and purpose of psychotropic medication treatment. Review type of psychotropic medications being ordered. Review risk and benefits of psychotropic medication treatment. Review probable length of time patient will need to take medications. Review risk and benefits of not undergoing psychotropic medication treatment. Review alternative treatments to psychotropic medications. Review psychotropic medications contraindications, drug-drug interactions, side effects, and importance of reporting any side effects to a psychiatric provider or nurse during inpatient hospitalization, and upon discharge to patients psychiatric outpatient provider, primary care provider, or other health anesthesiologist and critical care. Review importance of asking a nurse, psychiatric provider, or primary care provider any questions or problems concerning the psychotropic medications. Verify patient understands the information that has been provided, and understands, accepts, and agrees to psychotropic medications. Review patients safety plan and importance of patient to report to staff while hospitalized if patient is ever a danger to self/others, or unable to care for self, and upon discharge, the importance for patient to contact [facility] or [facility], or go to the nearest emergency room, if patient is ever a danger to self/others, or unable to care for self. Recommend that upon discharge patient establish medication management treatment with a psychiatric provider, establishes routine therapy appointments, and follow-up with primary care provider. Verify patient understands and agrees to these recommendations. 12/20/18 06:50 Subjective: Following up with patient for evaluation of mood and safety. Patient reports, "Up and down emotionally. Just don't want to be alive anymore. Thinking about either running in front of a bus or jumping off a bridge. I don't know, just now feeling good emotionally." Patient expresses the following psychiatric symptoms severe anxiety and depression. Patient reports taking medications as prescribed. Patient does not report undesirable side effects from the medications, and agrees to continue current medications. Objective: Vital Signs Temp Pulse Resp BP Pulse Ox 36.4 C 88 16 116/64 97 12/20/18 06:00 12/20/18 06:00 12/20/18 06:00 12/20/18 06:00 12/20/18 06:00 MSE: The patient is a well-nourished transgender female looking stated chronological age. Attire is appropriate dress is casual. Grooming status is appropriate. Ambulation is independent. Gait is normal and coordinated. Posture is normal. Eye contact is appropriate. Motor activity is appropriate with purposeful, organized, coordinated movements; with no involuntary movements. Attitude is cooperative. Patient appears attentive and relates well to this interviewer. Language production is spontaneous. R/R/V normal. Articulation is clear. Patient reports mood as anxious with congruent affect. Patients thought process is linear and logical. No s/s of formal thought disorder noted. Patient reports suicidal thoughts. Patient denies homicidal thoughts. Patient reports she currently feels safe on the unit, and reports no current self-injurious ideation. Patient describes not feeling safe to discharge. Patient denies auditory, visual hallucinations. Patient denies delusions. Patient does not appear to be attending to internal stimuli. Patients attention and concentration are fair. Patient is oriented to person, place, time. Patients insight is poor. Patients judgment is poor. SUBSTANCE ABUSE BRIEF INTERVENTION: Brief intervention regarding the risks of alcohol and THC abuse is provided to patient with goal to reduce the risk of harm that could result from the continued use of alcohol and THC, with the general aim to investigate the problem, raise awareness of problem, develop a solution with the patient, recommend a specific change or activity, and motivate the patient toward change. Assess substance abuse behavior and give supportive advice about harm reduction, recommend a reduction in hazardous/at- risk consumption patterns, and facilitate referrals for additional specialized treatment with manager medicare. Intermediate goal is for the patient to quit and attend outpatient substance abuse treatment. Intervention focus on intermediate goals to allow for more immediate success in the treatment process to keep the patient motivated. Review following with patient: Cannabis use risks: Short-term use: impaired short-term memory, impaired motor coordination, altered judgement, in high doses paranoia and psychosis. Long-term use addiction, diminished life satisfaction and achievement, symptoms of chronic bronchitis, and increased risk of chronic psychosis disorders if predisposition to such disorders. In withdrawal anger, aggression irritability, anxiety and nervousness, decreased appetite or weight loss, restlessness, and sleep difficulties with strange dreams. Alcohol/Binge Drinking risks: short-term: injuries, violence, alcohol poisoning, risky sexual behaviors. Long-term: high blood pressure, stroke, liver disease, digestive problems, cancer, learning and memory problems, depression and anxiety, social problems, and alcohol dependence. OUTPATIENT SUBSTANCE ABUSE TREATMENT: Patient referred to outpatient provider and treatment for continued treatment related to substance abuse. - Time Spent With Patient Time Spent With Patient: 15 minutes, met with patient individually. - Pending Discharge Pending Discharge Within 24 Hours: No Pending Discharge Within 48 Hours: No ICD10 Worksheet Patient Problems: Problems Problem Status Onset Alcohol use disorder, severe, dependence Acute Cannabis use disorder, severe, dependence Acute Cannabis-induced anxiety disorder Acute Major depressive disorder, severe Chronic Post traumatic stress disorder Chronic
[2018-12-20] MEDS: SPIRONOLACTONE 100 MG TAB PO SCH (07:55)
[2018-12-20] MEDS: SERTRALINE HCL 50 MG TAB PO SCH (07:56)
--- NOTE | 2018-12-20 14:36 | ASMTCMCOM ---
CM Note CM Note Notes: The patient participated in clinical treatment team rounds. She was engaged and appropriate. She agreed that she will benefit from continued treatment outpatient and has made arrangements with her family to participate in a lower level of care upon discharge.The patient maintains SI. She continues to endorse hopelessness as well and make catastrophizing statements. She reported having "no memory of being here" including "all of yesterday." The patient denied any further support from the treatment team stating that she needs to do "internal" work now. She stated, "I'm eager to go home and I'm just as eager to get better." Date Signed: 12/20/2018 11:10 AM Electronically Signed By:Rina Barry
--- NOTE | 2018-12-20 20:59 | BDS ---
[f rep st] BEHAVIORAL HEALTH DISCHARGE SUMMARY REASON FOR ADMISSION: From the ED note dated 12/14/2018, patient presented to the emergency department with suicidal ideation with suicidal plans of either walking out in traffic or taking Zoloft pills in overdose. Patient was admitted involuntarily and on an M1 hold due to being a danger to herself and was hospitalized for safety, crisis stabilization, and medication management. ADMITTING DIAGNOSES: 1. Major depressive disorder, severe. 2. Posttraumatic stress disorder. 3. Cannabis use disorder, severe. 4. Alcohol use disorder, severe. 5. Cannabis induced anxiety disorder. ADMISSION PHYSICAL EXAM: The patient was seen on 12/14/2018, for history and physical for medical clearance for inpatient psychiatric hospitalization and treatment. Patient was medically cleared for inpatient psychiatric hospitalization treatment. For further details, please refer to 12/14/2018, note document ED short dictation. ADMISSION LABORATORY: 1. CBC within normal limits. 2. BMP within normal limits. 3. Toxicology screen non-negative for THC, negative for all other substances screened, and negative for ethyl alcohol. MAJOR PROCEDURES/TESTS: None. HOSPITAL COURSE: The most prominent symptoms and behaviors while the patient was here were reports of severe anxiety and depression. Target symptoms were anxiety and depression. Treatment modalities utilized were milieu and group therapy. Zoloft 50 mg p.o. daily was continued to target mood symptoms, was tolerated with no report of side effects. Patient has improved considerably with no signs of psychiatric symptoms and no psychiatric symptoms expressed. Patient reports she has improved since admission, states to be in stable condition, feels safe to discharge, and she contracts for safety. Patients response to treatment was good. There were no adverse or unexpected results of treatment. The patient was safe throughout stay, active in treatment, engaged in groups, and was appropriate with staff. Patient met with treatment team prior to discharge to assess readiness to discharge and review discharge plan. The treatment team consensus is the patient in stable condition, has a safe discharge plan, and is ready to discharge today. CONDITION AT DISCHARGE: Patient is in stable condition and is no longer a danger to self or others, and is not gravely disabled due to mental illness. Patient is no longer in need of inpatient level of care, and can be safely and effectively treated within the community. The patients level of risk at time of discharge is low. MSE: The patient is casually dressed and with good hygiene , and looks stated age. Patient is sitting, posture is upright, and position is relaxed. Patient appears awake, alert, and responds appropriately and reasonably during interview. Patient is engaged, relates well to interviewer, and emotional facial expression is appropriate to situation and changes appropriately with topic. Patient is cooperative, makes comfortable eye contact , and movements are voluntary, deliberate, coordinated, and smooth and even with no inappropriate movements. Patient makes laryngeal sounds effortlessly and shares conversation appropriately; pace of conversation is appropriate, and stream of talking is fluent; articulation is clear and understandable; word choice is effortless and appropriate for education level; completes sentences, occasionally pausing to think; rate and volume are appropriate for interview and setting. Patient reports mood as euthymic. Patients affect is stable with full variable range, congruent with mood, and appropriate to speech and circumstances. Patient has linear and logical thinking, with no loose associations, tangential thought, thought blocking, concrete thinking, or any other signs of formal thought disorder. Patient denies suicidal and homicidal ideation, and denies hallucinations and delusions. Patient appears to be a reliable historian with sound judgement and good insight into current condition. Patient has no apparent dysfunction in recent or remote memory noted , and no evidence of gross cognitive dysfunction noted at any point during the interview. DISCHARGE DIAGNOSES: 1. Major depressive disorder, severe. 2. Posttraumatic stress disorder. 3. Cannabis use disorder, severe. 4. Alcohol use disorder, severe. CURRENT MEDICATIONS: After reviewing options, risks, and benefits with the patient, the patient agrees to continue Zoloft 50 mg p.o. daily. The patient states she has prescription for Zoloft and is in no need of prescriptions at time of discharge. DISPOSITION: Patient left hospital independently and voluntarily with her mother and plans to return home and stay with her mother. FOLLOW-UP: social work coordinator reports the appropriate outpatient follow-up services have been established and outpatient appointments have been scheduled. The patient received written instructions with times and dates of outpatient follow-up appointments. The following follow-up recommendations were provided to the patient at discharge: Continue psychotropic medications as prescribed and attend appointments as scheduled. Report any side effects to a psychiatric outpatient provider, a primary care provider, or other health medicare specialist. Address any questions or problems concerning the psychotropic medications with a psychiatric outpatient provider, a primary care provider, or other health medicare specialist. Contact [facility] or [facility], or go to the nearest emergency room, if you are ever a danger to yourself/others, or unable to care for yourself. As soon as possible, establish a routine medication management treatment with a psychiatric provider, establish routine therapy appointments, and follow-up with a primary care provider. SUBSTANCE ABUSE BRIEF INTERVENTION: Brief intervention regarding the risks of alcohol and cannabis abuse is provided to patient with goal to reduce the risk of harm that could result from the continued use of alcohol and cannabis, with the general aim to investigate the problem, raise awareness of problem, develop a solution with the patient, recommend a specific change or activity, and motivate the patient toward change. Assess substance abuse behavior and give supportive advice about harm reduction, recommend a reduction in hazardous/at- risk consumption patterns, and facilitate referrals for additional specialized treatment with rn care transition. Intermediate goal is for the patient to quit and attend outpatient substance abuse treatment. Intervention focus on intermediate goals to allow for more immediate success in the treatment process to keep the patient motivated. Review following with patient: Cannabis use risks: Short-term use: impaired short-term memory, impaired motor coordination, altered judgement, in high doses paranoia and psychosis. Long-term use addiction, diminished life satisfaction and achievement, symptoms of chronic bronchitis, and increased risk of chronic psychosis disorders if predisposition to such disorders. In withdrawal anger, aggression irritability, anxiety and nervousness, decreased appetite or weight loss, restlessness, and sleep difficulties with strange dreams. Alcohol/Binge Drinking risks: short-term: injuries, violence, alcohol poisoning, risky sexual behaviors. Long-term: high blood pressure, stroke, liver disease, digestive problems, cancer, learning and memory problems, depression and anxiety, social problems, and alcohol dependence. OUTPATIENT SUBSTANCE ABUSE TREATMENT: Patient referred to outpatient provider and treatment for continued treatment related to substance abuse. LEGAL COURSE: Patient was admitted on an M1 hold for involuntary inpatient psychiatric hospitalization and treatment. The patient discharged today independently and voluntarily. ATTITUDE AT TIME OF DISCHARGE: The patients attitude was positive at time of discharge, and patient reports looking forward to discharging today. The patient reports she feels safe to discharge, is no longer a danger to herself or others, is in stable condition, and contracts for safety. Patient states she will continue medications as prescribed, and establish medication management treatment with an outpatient provider after discharge. Patient reports she understands the information that has been provided to her, and she understands, accepts, and agrees to psychotropic medications. Patient describes internal protective factors as the coping skills she has learned while hospitalized here, and she plans to continue to practice these coping skills after discharge. PENDING LABS AND RADIOLOGY STUDIES: There were no pending labs or studies at time of discharge. ADVANCED DIRECTIVES: There are no advance directives on file, and patient was full code during this hospitalization.] The following psychotropic medication treatment informed consent and recommendations were provided to the patient at time of discharge. Patient reports she understands, accepts, and agrees to the information that has been provided. PSYCHOTROPIC MEDICATION TREATMENT INFORMED CONSENT and RECOMMENDATIONS: Review nature of condition, diagnosis, and prognosis. Review nature and purpose of psychotropic medication treatment. Review type of psychotropic medications being prescribed. Review risk and benefits of psychotropic medication treatment. Review probable length of time will need to take medications. Review risk and benefits of not undergoing psychotropic medication treatment. Review alternative treatments to psychotropic medications. Review psychotropic medications contraindications, side effects, and importance of reporting any side effects to a psychiatric provider, primary care provider, or other health medicare specialist. Review importance of her asking a psychiatric provider or primary care provider any questions or problems concerning the psychotropic medications. Review importance of reporting to a psychiatric provider, primary care provider, or other health medicare specialist if she plans to or becomes . Review safety plan and the importance to contact [facility] or [facility] , or go to the nearest emergency room, if ever a danger to yourself/others, or unable to care for yourself. Recommend upon discharge to establish routine medication management treatment with a psychiatric provider, establish routine therapy appointments, and follow-up with a primary care provider. Verify patient understands, accepts, and agrees to the information that has been provided. /[id number]/[id number]
== END 2018-12-20 14:22 | disposition home or self-care (01) | DRG 885 ==
LOC: EDSEX → BBEH 12-15 00:10 → EDSEX 12-15 00:10
PROVIDERS: ADMIT Psychiatry & Neurology Behavioral Neurology & Neuropsychiatry; ATTEND Psychiatry & Neurology Behavioral Neurology & Neuropsychiatry
DX: F33.3 Major depressive disorder, recurrent, severe with psychotic symptoms (principal); F43.10 Post-traumatic stress disorder, unspecified; F12.959 Cannabis use, unspecified with psychotic disorder, unspecified; Z72.89 Other problems related to lifestyle
CPT/HCPCS: 80305; G0480

== ENCOUNTER 2018-12-17 20:32 | Emergency (ER) | payer MEDICAID ==
[2018-12-17] MEDS ORDERED: NS 500 ML IV ONE (20:54)
[2018-12-17 21:02] LABS: PLATELET COUNT 242 10^3/uL (150-400)
--- NOTE | 2018-12-17 21:33 | EDPHY ---
H & P Time Seen by Provider: 12/17/18 20:40 HPI/ROS: HPI Fast heart rate, anxiety and chest tightness during ECT. 23-year-old transgender by ambulance from [address] [place] [address]. She is there for suicidal ideation. She was undergoing ECT therapy. She developed chest tightness, anxiety and tachycardia. On EMS arrival an IV was placed. She was told she was given medication for her anxiety but this was actually just normal saline. Shortly after this she calmed down and her vital signs return to normal. She presents to the emergency department for evaluation. She is currently feeling much better and does not have any complaints. ROS: Constitutional: No fever, no chills. As above. Eyes: No discharge. No changes in vision. ENT: No sore throat. No nasal congestion or rhinorrhea. Respiratory: No cough. No shortness of breath. Cardiac: As above. Gastrointestinal: No abdominal pain, no vomiting, no diarrhea. Genitourinary: No hematuria. No dysuria or increased frequency with urination. Musculoskeletal: No back pain. No neck pain. No myalgias or arthralgias. Skin: No rashes. Neurological: No headache. No focal weakness or altered sensation. Past medical history: Concussion, sports induced asthma, depression and suicidal ideation. Social history: Nonsmoker. No alcohol. Currently here by herself. Physical Exam: General Appearance: Alert, no distress. She is relaxed and comfortable at this time. This patient is responding to questions appropriately and in full sentences. This patient appears well-hydrated and well-nourished. Eyes: Pupils equal and round no pallor or injection. No lid edema, erythema or injection. ENT, Mouth: Mucous membranes are moist. The pharyngeal tissues are unremarkable. No edema or swelling. No asymmetry suggestive of abscess. No erythema or exudates. No tongue lacerations or abrasions. Respiratory: There are no retractions, lungs are clear to auscultation with good air movement bilaterally. Cardiovascular: Regular rate and rhythm. No murmur appreciated. Gastrointestinal: Abdomen is soft and nontender, no masses, bowel sounds normal. No focal tenderness at McBurney's point. No Fernandez sign. Neurological: Motor sensory function is grossly intact. Cranial nerves are normal. Cerebellar function is normal. Skin: Warm and dry, no rashes. Musculoskeletal: Neck is supple and nontender. Extremities are symmetrical. All joints range without pain or impingement. Psychiatric: No agitation. No depression. Database: EKG: EKG time is 8:47 p.m.; EKG shows a narrow complex normal sinus rhythm with a ventricular rate of 67. Early repolarization pattern noted. The [place], QRS, QT intervals are within normal limits. There are no ST-T wave changes indicative of ischemic or injury pattern. No evidence of right heart strain. No evidence of WPW, Brugada syndrome, hypertrophic cardiomyopathy. Interpreted by me. Imaging: Procedures: Emergency department course: Triage vital signs reviewed. IV established by EMS. 500 cc normal saline bolus ordered. EKG obtained and reviewed by myself. 9:30 p.m., the patient was re-evaluated, she is resting comfortably at this time. Results of her EKG and blood work discussed with her. No red flags. Her vital signs have remained normal. monitor and storage bin tender shows a narrow complex sinus rhythm with ventricular rate of 70. Room air pulse oximetry 96%. She feels comfortable being discharged and I feel she is safe for transfer back to [address] [place] [address]. Follow-up and return to emergency department precautions reviewed with the staff there. All of the patient's questions were answered. She was transferred in stable condition back to [address] [place] [address]. Differential Diagnosis: The differential diagnosis on this patient includes but is not limited to anxiety reaction. Acute coronary syndrome, pulmonary embolism, medication reaction, arrhythmia unlikely. This represents a partial list of diagnoses considered. These considerations are based on history, physical exam, past history, reassessment and diagnostic testing. Smoking Status: Never smoked Constitutional: Initial Vital Signs Temperature (C) 36.7 C 12/17/18 20:32 Heart Rate 90 12/17/18 20:32 Respiratory Rate 16 12/17/18 20:32 Blood Pressure 120/69 12/17/18 20:32 O2 Sat (%) 95 12/17/18 20:32 O2 Delivery Mode Room Air Allergies/Adverse Reactions: hepatitis B immune globulin Allergy (Verified 12/14/18 17:24) strawberry Allergy (Verified 12/14/18 17:24) Home Medications: Medication Instructions Recorded Estradiol [Estradiol 1 MG (*)] 2 mg PO DAILY 11/30/18 Spironolactone 100 mg PO BID 11/30/18 Sertraline HCl [Zoloft 50mg (*)] 50 mg PO DAILY 30 Days #30 tab 12/06/18 Medical Decision Making - Data Points Laboratory Results: Laboratory Results 12/17/18 20:32 12/17/18 20:32 12/17/18 12/17/18 20:32 20:32 WBC 7.56 10^3/uL 10^3/uL (3.80-9.50) RBC 5.14 10^6/uL 10^6/uL (4.18-5.33) Hgb 16.1 g/dL g/dL (12.6-16.3) Hct 46.4 % % (38.0-47.0) MCV 90.3 fL fL (81.5-99.8) MCH 31.3 pg pg (27.9-34.1) MCHC 34.7 g/dL g/dL (32.4-36.7) RDW 11.5 % % (11.5-15.2) Plt Count 242 10^3/uL 10^3/uL (150-400) MPV 10.3 fL fL (8.7-11.7) Neut % (Auto) 62.5 % % (39.3-74.2) Lymph % (Auto) 26.7 % % (15.0-45.0) Heard % (Auto) 7.4 % % (4.5-13.0) Eos % (Auto) 2.6 % % (0.6-7.6) Baso % (Auto) 0.4 % % (0.3-1.7) Nucleat RBC Rel Count 0.0 % % (0.0-0.2) Absolute Neuts (auto) 4.72 10^3/uL 10^3/uL (1.70-6.50) Absolute Lymphs (auto) 2.02 10^3/uL 10^3/uL (1.00-3.00) Absolute Monos (auto) 0.56 10^3/uL 10^3/uL (0.30-0.80) Absolute Eos (auto) 0.20 10^3/uL 10^3/uL (0.03-0.40) Absolute Basos (auto) 0.03 10^3/uL 10^3/uL (0.02-0.10) Absolute Nucleated RBC 0.00 10^3/uL 10^3/uL (0-0.01) Immature Gran % 0.4 % % (0.0-1.1) Immature Gran # 0.03 10^3/uL 10^3/uL (0.00-0.10) Sodium 136 mEq/L mEq/L (135-145) Potassium 4.9 mEq/L mEq/L (3.5-5.2) Chloride 104 mEq/L mEq/L (97-110) Carbon Dioxide 20 mEq/l L mEq/l (22-31) Anion Gap 12 mEq/L mEq/L (6-14) BUN 15 mg/dL mg/dL (7-23) Creatinine 0.7 mg/dL mg/dL (0.6-1.0) Estimated GFR > 60 Glucose 130 mg/dL H mg/dL (70-100) Calcium 9.4 mg/dL mg/dL (8.5-10.4) Medications Given: Discontinued Medications Sodium Chloride (Ns) 500 mls @ 1,000 mls/hr IV EDNOW ONE PRN Reason: Protocol Stop: 12/17/18 21:23 Last Admin: 12/17/18 21:10 Dose: 500 mls Departure - Departure Disposition: Home, Routine, Self-Care Clinical Impression: Anxiety reaction Condition: Good Instructions: Anxiolysis in Adults (ED) Additional Instructions: Read and follow provided instructions. It is to be determined by your psychiatrist and the covering internal medicine physician whether or not you can resume ECT. Return to the emergency department for chest pain, palpitations, lightheadedness or other serious concerns. Referrals: NONE *PRIMARY CARE P,. [Primary Care Provider] - As per Instructions
[2018-12-17 22:08] VITALS: BP 100/56
--- NOTE | 2018-12-17 22:45 | CPEKG ---
Test Reason : OPEN Blood Pressure : / mmHG Vent. Rate : 067 BPM Atrial Rate : 068 BPM P-R Int : 137 ms QRS Dur : 088 ms QT Int : 371 ms P-R-T Axes : 008 009 027 degrees QTc Int : [address] elev, probable normal early repol pattern Confirmed by Brooks Hernandez ([id number]) on 12/17/2018 10:45:18 PM Referred By: Brooks Hernandez Confirmed By:Brooks Hernandez
== END 2018-12-17 22:05 ==
LOC: EDUNIT#
DX: F41.1 Generalized anxiety disorder (principal)

== ENCOUNTER 2018-12-25 20:05 | Emergency (ER) | payer MEDICAID ==
--- NOTE | 2018-12-25 21:06 | EDPHY ---
H & P Smoking Status: Former smoker Time Seen by Provider: 12/25/18 20:20 HPI/ROS: Chief complaint. Suicide ideation HPI. 23-year-old transgender female presents with suicide ideation and plan. Self harm with superficial cuts on left arm and left anterior chest. Denies taking too many medications are otherwise hurting herself. Recent hospitalization for 1 week with mental health. Discharge last week though has continuing depression. Denies illness including fever, chest discomfort, shortness of breath, abdominal pain, vomiting or diarrhea. ROS 10 systems were reviewed and negative with the exception of the elements mentioned in the history of present illness (Oswaldo Sharma) Past Medical/Surgical History: Concussion, asthma, trans gender, suicide ideation, polysubstance abuse (Oswaldo Sharma) Social History: Single, nonsmoker, no alcohol (Oswaldo Sharma) Physical Exam: General Appearance: Alert pleasant well-developed female mild distress vital signs are stable Eyes: Pupils equal and round no pallor or injection. ENT, Mouth: Mucous membranes are moist. Respiratory: There are no retractions, lungs are clear to auscultation. Cardiovascular: Regular rate and rhythm. Gastrointestinal: Abdomen is soft and nontender, no masses, bowel sounds normal. Neurological: Awake and alert, sensory and motor exams grossly normal. Skin: Multiple superficial skin lacerations to left arm and left anterior chest. None require sutures. No evidence of foreign body. No evidence for infection Musculoskeletal: Neck is supple nontender. Extremities symmetrical, full range of motion. Psychiatric: Patient is oriented X 3, there is no agitation. (Oswaldo Sharma) Constitutional: Initial Vital Signs Temperature (C) 36.4 C 12/25/18 20:08 Heart Rate 92 12/25/18 20:08 Respiratory Rate 16 12/25/18 20:08 Blood Pressure 142/81 H 12/25/18 20:08 O2 Sat (%) 94 12/25/18 20:08 O2 Delivery Mode Room Air Allergies/Adverse Reactions: hepatitis B immune globulin Allergy (Verified 12/25/18 20:19) strawberry Allergy (Verified 12/25/18 20:19) Home Medications: Medication Instructions Recorded Estradiol [Estradiol 1 MG (*)] 2 mg PO HS 11/30/18 Spironolactone 100 mg PO BID 11/30/18 Sertraline HCl [Zoloft 50mg (*)] 50 mg PO DAILY 30 Days #30 tab 12/06/18 Medical Decision Making ED Course/Re-evaluation: Patient is cleared medically for mental health evaluation. Re-evaluation again 11:00 p.m.. Patient resting comfortably. (Oswaldo Sharma) 6:22 a.m.- Patient was stable overnight, resting comfortably. She is awaiting mental health evaluation this morning for self-harm behavior. I have placed her on a mental health hold because of ongoing suicidality while here. Case will be signed out to the oncoming provider Dr. Sheriff at approximately 7:00 a.m.. ( Lexus Delcid) Differential Diagnosis: I considered suicide and homicide ideation. I considered ingestions and withdrawals. Patient has evidence of self-harm (Oswaldo Sharma) Other Provider: Care assumed at 7:[address] Delcid, patient is on a mental health hold for suicidal ideation and psychiatric evaluation this morning is pending. 1325: The patient will be transferred to [facility] for inpatient psychiatric hospital bed not available at this facility, in stable condition; accepting physician is Dr. Michael. EMTALA form completed. (Fareed Sheriff) Care Turn Over: Care to Dr. Ortega at 11:00 p.m. (Oswaldo Sharma) - Data Points Laboratory Results: Laboratory Results 12/25/18 21:08 12/25/18 21:08 Medications Given: Discontinued Medications Ibuprofen (Motrin) 600 mg PO EDNOW ONE Stop: 12/26/18 06:46 Last Admin: 12/26/18 06:48 Dose: 600 mg Departure - Departure Disposition: Other Psych, Not Mary Clinical Impression: Suicide ideation, Forearm abrasion, non-infected Condition: Good Instructions: Suicide Prevention (ED) Referrals: Sandoval Sandoval DO [Medical Doctor] - As per Instructions
[2018-12-25 21:17] LABS: PLATELET COUNT 221 10^3/uL (150-400)
[2018-12-26] MEDS ORDERED: IBUPROFEN 600 MG TAB PO ONE (06:45)
[2018-12-26] MEDS ORDERED: IBUPROFEN 200 MG TAB PO ONE (06:45)
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
[2018-12-26] MEDS ORDERED: SPIRONOLACTONE 100 MG TAB PO SCH (13:15)
[2018-12-26 14:04] VITALS: BP 119/79
[2018-12-26] MEDS ORDERED: LORazepam 1 MG TAB PO ONE (15:18)
[2018-12-26] MEDS ORDERED: ESTRADIOL 1 MG TAB PO SCH (21:00)
--- NOTE | 2018-12-27 06:08 | ASMTTCLDSP ---
TLC Discharge Disposition Disposition: Answers: Transfer Disposition Notes: Notes: Transferred to [facility] as María Cava at capacity. Discharge Concerns/Recommendations: Notes: In consultation with [facility] ED physician,Dr Denny, it was concurred that Pt does appear to meet 27-65 criteria requiring psychiatric hospitalization as Pt does appear to be an imminent risk of harm to self due to a mental illness condition. Pt was read the Patient Rights and Responsibilities Statement on 12/26/2018 at 10:30, original placed in chart and copy given to pt. Pt signed the Patient Rights. Type of Hold: Answers: M1/72-hour Hold Hold initiated by: Answers: Police For Transfers, Accepting [facility] Facility: For Transfers, Accepting Dr. Espino Psychiatrist: For Transfers, Reason Unit at capacity, pt and MOP not happy with last Patient is Being stay at [facility] Transferred: Date Signed: 12/27/2018 06:08 AM Electronically Signed By:Maikel Olivier
== END 2018-12-26 16:03 ==
PROC: GZ11ZZZ Psychological Tests, Personality and Behavioral (ICD-10-PCS; principal; 2018-12-25)
DX: R45.851 Suicidal ideations (principal); S50.812A Abrasion of left forearm, initial encounter; S20.312A Abrasion of left front wall of thorax, initial encounter; X78.9XXA Intentional self-harm by unspecified sharp object, initial encounter
CPT/HCPCS: 80305; G0480